=== PATIENT | male | born 1960 | race Caucasian/White ===

== ENCOUNTER → 2017-07-22 06:59 | Outpatient (CLI) | payer MEDICARE ==
[~2017-07-22] VITALS: Ht 167.6 cm; Wt 72.7 kg
--- NOTE | ~2017-07-22 | OP ---
PATIENT NAME: CINDA CHEN JR MEDICAL RECORD: [id number] :58 LOCATION:D.CAT ADMISSION DATE: SURGEON: MIKI HERNANDEZ MD DATE OF OPERATION: 07/22/2017 PROCEDURES: 1. PTCA stent LAD. 2. PTCA stent LAD diagonal. 3. Left heart catheterization. 4. Selective coronary angiography. 5. Left ventriculogram. INDICATION: Angina and coronary artery disease. PROCEDURE IN DETAIL: After informed consent was obtained and after a detailed description of risks, benefits as well as alternative therapies, the patient elected to proceed with angiogram and angioplasty. The right radial area was prepped and draped in normal sterile fashion. Right radial artery was cannulated via modified Seldinger technique with placement of 6-Bangladeshi sheath. All catheters exchanged through this sheath. FINDINGS: Left ventriculogram was performed in standard 30-degree FLORES view, reveals good cardiac wall motion throughout all segments. Overall ejection fraction 50%. SELECTIVE CORONARY ANGIOGRAPHY: 1. Left main is with no significant angiographic disease. 2. Left anterior descending has 2 diagonals. Each are previously placed stents, each are 90% to 95% in-stent restenosed. The LAD itself has 80% stenosis between the diagonals. 3. Left circumflex has moderate irregularities, but no flow-limiting stenosis. 4. Right coronary artery has moderate irregularities, but no flow-limiting stenosis. PTCA STENT OF THE LAD AND LAD DIAGONAL: The first diagonal was addressed with a 2.5 x 15, the second diagonal was addressed with a 2.5 x 12 and the LAD was addressed with a 3.5 x 12 all Chris stents. Result was 0% residual stenosis. OVERALL IMPRESSION: Successful PTCA stent of the LAD and diagonals going from 80% to 95% initial stenosis to 0% residual. TRANSINT:[id number] Voice Confirmation ID: [id number] DOCUMENT ID: [id number] MIKI HERNANDEZ MD at 1711 CC: [id number] DICTATION DATE: 07/22/17 0942 CLINICAL TRANSFORMATION SPECIALIST: 07/22/17 1055 DEP CLI 07/22/17 [place] [address]
--- NOTE | ~2017-07-22 | HEMODYNAMI ---
PATIENT:CINDA CHEN JR MEDICAL RECORD: [id number] : 58 LOCATION:[facility] ADMISSION DATE: 07/22/17 Generatedon:07/22/20179:42 Patient name: CINDA CHEN Patient #: [id number] SSN: : 1960 Date of study: 07/22/2017 Page: Of Hemodynamic Procedure Report Patient Data Patient Demographics Procedure consent was obtained First Name: CINDA Gender: Male Last Name: APRIL Suffix: Jr Nance Initial: JOSUÉ : 1960 Patient #: [id number] Age: 56 year(s) Race: Additional ID: [id number] Contact details Address: [address] [place] [address] [place] State: [place] City: [place] Zip code: [address] Past Medical History Allergies Allergen Reaction Date Comments Reported Morphine 06/04/2015 Other allergy 07/22/2017 Morphine Admission Admission Data Admission Date: 07/22/2017 Admission Time: 6:59 Admit Source: Other Lab Results Lab Result Date: 07/22/2017 Lab Result Time: 7:57 Biochemistry Name Units Result Min Max BUN mg/dl 26 --(----)-* 7 18 Creatinine mg/dl 1.2 --(---*)-- 0.6 1.3 CBC Name Units Result Min Max Hematocrit % 45.5 --(-*--)-- 42 54 Hemoglobin g/dl 16.2 --(--*-)-- 13.5 17.5 Procedure Procedure Types Cath Procedure Diagnostic Procedure LHC LH w/Coronaries Sedation Charges Moderate Sedation up to 15 minutes PCI Procedure Coronary Stent Coronary Stent Initial Coronary Stent Additional x2 Procedure Description Procedure Date Procedure Date: 07/22/2017 Procedure Start Time: 9:08 Procedure End Time: 9:36 Procedure Staff Name Function Abrahan Gomez MD Performing Physician Karl Thibodeaux RT Monitor Mann Riley RT Scrub Brady Cruz RN Nurse Procedure Data Cath Procedure Fluoroscopy Diagnostic fluoroscopy Total fluoroscopy Time: 8.9 time: 8.9 min min Diagnostic fluoroscopy Total fluoroscopy dose: 553 dose: 553 mGy mGy Contrast Material Contrast Material Type Amount (ml) Isovue 370 126 Entry Location Entry Primary Successful Side Size Upsize Upsize Entry Closure Madrigal ccessful Closure Location (Fr) 1 (Fr) 2 (Fr) Remarks Device Remarks Radial Right 6 Fr Mechanical artery Short Compression Estimated blood loss: 10 ml Diagnostic catheters Device Type Used For End Catheter Placement DIAGNOSTIC [place] 110cm 5 Procedure Fr catheter ([id number]) Procedure Complications No complications Procedure Medications Medication Administration Route Dosage Oxygen etCO2 Nasal cannula 2 l/min Heparin Flush Bag added to field 2 bags (1000units/500ml NS) 0.9% NaCl I.V. 100 ml/hr Radial Cocktail added to field 1 syringe (Verapomil 2mg/Nitro 400mcg/Heparin 1500units) Fentanyl I.V. 50 mcg Versed I.V. 1 mg Fentanyl I.V. 50 mcg Versed I.V. 1 mg Radial Cocktail I.A. 1 syringe (Verapomil 2mg/Nitro 400mcg/Heparin 1500units) Heparin Bolus I.V. 5000 units Hemodynamics Rest HGB: 16.2 (g/dl) Heart Rate: 144 (bpm) Snapshots Pre Cath Intra NCS Post Cath Vital Signs Time Heart Resp SPO2 etCO2 NIBP Rhythm Pain Sedation Rate (ipm) (%) (mmHg) (mmHg) Status Level (bpm) 8:43:47 57 16 98 0 117/79(97) NSR 0 (11) 10(A) , No pain 8:47:45 63 17 98 0 122/76(95) NSR 0 (11) 10(A) , No pain 8:51:40 67 17 96 0 114/74(96) NSR 0 (11) 10(A) , No pain 8:55:42 64 17 96 29.9 102/63(87) NSR 0 (11) 10(A) , No pain 8:59:37 64 17 96 30.7 104/67(81) NSR 0 (11) 10(A) , No pain 9:03:37 63 17 96 30.7 99/59(85) NSR 0 (11) 10(A) , No pain 9:07:33 61 16 96 30.7 101/63(84) NSR 0 (11) 10(A) , No pain 9:11:32 69 16 95 31.4 95/56(73) NSR 0 (11) 9(A) , No pain 9:15:30 66 16 93 30.7 92/58(75) NSR 0 (11) 9(A) , No pain 9:20:09 64 17 94 32.9 92/49(72) NSR 0 (11) 9(A) , No pain 9:24:12 64 18 95 31.4 95/47(72) NSR 0 (11) 9(A) , No pain 9:28:51 65 18 96 31.4 97/54(77) NSR 0 (11) 9(A) , No pain 9:32:53 65 17 96 32.9 92/56(75) NSR 0 (11) 9(A) , No pain 9:38:57 63 10 98 31.4 Time NSR 0 (11) 9(A) Exceeded , No pain Medications Time Medication Route Dose Verified Delivered Reason Note s Effectiveness by by 8:44:06 Oxygen etCO2 2 l/min Abrahan Abreu Per physician Nasal Jason Cruz RN cannula 8:44:15 Heparin Flush added 2 bags Abrahan Abreu used for Bag to Jason Cruz RN procedure (1000units/500ml field NS) 8:44:27 0.9% NaCl I.V. 100 Abrahan Abreu Per physician ml/hr Jason Cruz RN 8:44:34 Radial Cocktail added 1 Abrahan Abreu used for (Verapomil to syringe Jason Cruz RN procedure 2mg/Nitro field 400mcg/Heparin 1500units) 9:06:37 Fentanyl I.V. 50 mcg Abrahan Abreu for sedation Jason Cruz RN 9:06:46 Versed I.V. 1 mg Abrahan Abreu for sedation Jason Cruz RN 9:09:42 Fentanyl I.V. 50 mcg Abrahan Abreu for sedation Jason Cruz RN 9:09:47 Versed I.V. 1 mg Abrahan Abreu for sedation Jason Cruz RN 9:09:57 Radial Cocktail I.A. 1 Abrahan Gauthier for (Verapomil syringe Jason Gomez MD vasodilation 2mg/Nitro 400mcg/Heparin 1500units) 9:14:58 Heparin Bolus I.V. 5000 Abrahan Abreu for units Jason Cruz RN anticoagulation Procedure Log Time Note 8:23:40 Brady Cruz RN sent for patient. Start room use. 8:33:18 Informed consent obtained and on chart 8:33:21 Admit Source: Other 8:33:36 Diagnostic Cath status Elective 8:33:41 Time tracking: Regular hours (M-F 7:00 - 5:00) 8:33:45 Plan of Care:Hemodynamics will remain stable., Cardiac rhythm will remain stable., Comfort level will be maintained., Respiratory function will remain adequate., Patient/ family verbilizes understanding of procedure., Procedure tolerated without complication., Recovers from procedure without complications.. 8:35:14 H&P Date Dictated: 07/19/2017 Within 30 days and on chart., H&P Addendum completed by physician on day of procedure. (MUST COMPLETE FOR ALL OUTPATIENTS). 8:36:04 Lab Result : BUN 26 mg/dl 8:36:04 Lab Result : Creatinine 1.2 mg/dl 8:36:04 Lab Result : Hematocrit 45.5 % 8:36:04 Lab Result : Hemoglobin 16.2 g/dl 8:36:15 Lab results completed and on chart. 8:36:23 Patient received from Pre/Post Procedure Room to CCL 3 Alert and oriented. Tansferred to table in Supine position. 8:36:24 Warm blankets applied, and ervin hugger turned on for patient comfort. 8:36:24 Correct patient and procedure confirmed by team. 8:36:25 ECG and BP/O2 sat monitors applied to patient. 8:36:27 Pre-procedure instructions explained to patient. 8:36:27 Pre-op teaching completed and patient verbalized understanding. 8:36:29 Family in waiting room. 8:36:30 Patient NPO since Midnight. 8:42:57 Vital chart was started 8:44:06 Oxygen 2 l/min etCO2 Nasal cannula was administered by Brady Cruz RN; Per physician; 8:44:15 Heparin Flush Bag (1000units/500ml NS) 2 bags added to field was administered by Brady Cruz RN; used for procedure; 8:44:27 0.9% NaCl 100 ml/hr I.V. was administered by Brady Cruz RN; Per physician; 8:44:34 Radial Cocktail (Verapomil 2mg/Nitro 400mcg/Heparin 1500units) 1 syringe added to field was administered by Brady Cruz RN; used for procedure; 8:46:35 Baseline sample Acquired. 8:46:40 Rhythm: sinus rhythm 8:46:41 Full Disclosure recording started 8:47:20 Patient allergic to Other allergyMorphine 8:47:26 Is the patient allergic to Iodine/contrast media? No. 8:47:27 Is patient on blood thinner?Yes 8:47:29 ACC The patient was administered the following blood thiners within the last 24 hours: ACCPlavix 8:47:31 Patient diabetic? No. 8:47:34 Previous problem with sedation/anesthesia? No ? 8:47:35 Snore? Yes 8:47:36 Sleep apnea? No 8:47:39 Deviated septum? No 8:47:41 Opens mouth fully? Yes 8:47:42 Sticks out tongue? Yes 8:47:45 Airway obstruction? No ? 8:47:50 Dentures? Yes in tight 8:47:52 Modified Juan's test Ulnar < 7 seconds 8:47:55 Patient pain scale 0/10 ?. 8:48:01 IV patent on arrival in left forearm with 0.9% NaCl at [facility]. 8:48:05 Right Radial & Right Groin area was prepped with chlora-prep and draped in sterile fashion 8:48:05 Alarms reviewed by R. N. 8:48:06 Sharps counted by scrub and verified by R.N. 8:48:08 Use device set Radial Dx or PCI 8:48:09 ACIST Syringe (38376) opened to sterile field. 8:48:10 Medline Cath Pack ([id number]) opened to sterile field. 8:48:10 Bag Decanter () opened to sterile field. 8:48:11 ACIST Hand Control (13678) opened to sterile field. 8:48:11 ACIST Manifold (63307) opened to sterile field. 8:48:12 Tegaderm 4 x 4 (1626W) opened to sterile field. 8:48:12 MBrace Wrist Support ([id number]) opened to sterile field. 8:48:14 SHEATH 6Fr Prelude Radial ([id number]) opened to sterile field. 8:48:17 DIAGNOSTIC WIRE .035 260cm J wire (320907) opened to sterile field. 8:52:15 Physician paged 9:00:48 Zero performed for pressure channel P1 9:06:18 Physician arrived 9:06:19 --------ALL STOP TIME OUT------ 9:06:19 Final Timeout: patient, procedure, and site verified with staff and physician. All members of the team are in agreement. 9:06:21 Right Radial & Right Groin site verified by team. 9:06:23 Physical assessment completed. ASA score P 2 - A patient with mild systemic disease as per Abrahan Gomez MD. 9:06:25 Sedation plan: IV Moderate Sedation Medication:Versed, Fentanyl 9:06:37 Fentanyl 50 mcg I.V. was administered by Brady Cruz RN; for sedation; 9:06:46 Versed 1 mg I.V. was administered by Brady Cruz RN; for sedation; 9:08:30 Procedure started. 9:08:34 Local anesthetic to right radial artery with Lidocaine 2% by Abrahan Gomez MD.INITIAL ACCESS ONLY 9:09:03 A 6 Fr Short sheath was inserted into the Right Radial artery 9:09:12 A DIAGNOSTIC [place] 110cm 5 Fr catheter ([id number]) was advanced over the wire and used for Procedure. 9:09:42 Fentanyl 50 mcg I.V. was administered by Brady Cruz RN; for sedation; 9:09:47 Versed 1 mg I.V. was administered by Brady Cruz RN; for sedation; 9:09:57 Radial Cocktail (Verapomil 2mg/Nitro 400mcg/Heparin 1500units) 1 syringe I.A. was administered by Abrahan Gomez MD; for vasodilation; 9:10:24 LV gram done using FLORES 9:10:41 Injector settings: Ml/sec: 7, Volume: 15, 9:10:59 EF : 55 % 9:11:03 LCA angiography performed. 9:12:57 RCA angiography performed. 9:13:33 GUIDE 6FR XBLAD 3.5 catheter ([id number]) opened to sterile field. 9:13:34 CHOICE PT Extra Support 182cm wire ([id number]) opened to sterile field. 9:13:34 INFLATOR Merit BasixCompak (HJ5245) opened to sterile field. 9:13:39 Catheter removed. 9:14:58 Heparin Bolus 5000 units I.V. was administered by Brady Cruz RN; for anticoagulation; 9:15:01 6 Fr xblad 3.5 guide catheter was inserted over the wire 9:15:17 choice pt wire advanced. 9:18:11 Wire advanced across lesion. 9:20:10 Inflate balloon Inflation number: 1 A EUPHORA 2.5 x 15 Balloon ([id number]) was prepped and advanced across the 2nd Diag, then inflated to 11 REINIER for 0:10 (min:sec). 9:20:20 Balloon removed over the wire. 9:23:24 Place stent Inflation Number: 2 A RAJ RX 2.5 x 12 stent ([id number]) was prepped and advanced across the 2nd Diag. The stent was deployed at 13 REINIER for 0:10 (min:sec). 9:23:43 Stent catheter was removed intact over wire. 9:24:00 Wire redirected to 1st diag. 9:24:42 Wire advanced across lesion. 9:26:06 Inflation number: 1 The EUPHORA 2.5 x 15 Balloon ([id number]) was reinflated across the 1st Diag, to 13 REINIER for 0:10 (min:sec). 9:26:24 Inflation number: 2 The EUPHORA 2.5 x 15 Balloon ([id number]) was reinflated across the 1st Diag, to 17 REINIER for 0:10 (min:sec). 9:26:28 Balloon removed over the wire. 9:29:31 Place stent Inflation Number: 4 A RAJ RX 2.5 x 15 stent ([id number]) was prepped and advanced across the 1st Diag. The stent was deployed at 13 REINIER for 0:10 (min:sec). 9:29:38 Wire redirected to LAD. 9:29:48 Wire advanced across lesion. 9:30:29 Inflation number: 1 The stent balloon was then re-inflated across the Prox LAD to 21 REINIER for 0:10 (min:sec). 9:31:30 Stent catheter was removed intact over wire. 9:32:06 Place stent Inflation Number: 2 A RAJ RX 3.5 x 12 stent ([id number]) was prepped and advanced across the Prox LAD. The stent was deployed at 15 REINIER for 0:10 (min:sec). 9:32:56 Stent catheter was removed intact over wire. 9:32:57 Wire removed. 9:32:57 Guide catheter removed. 9:33:02 TR BAND Standard ([id number]) opened to sterile field. 9:33:07 Sheath removed intact; hemostasis achieved with Mechanical Compression to the Right Radial artery. 9:33:09 Procedure ended.(Physican Out) 9:34:01 Fluoroscopy time 08.90 minutes. 9:34:08 Flurop Dose total: 553 9:34:08 Fluoroscopy dose: 553 mGy 9:34:15 Contrast amount:Isovue 370 126ml. 9:34:16 Sharps counted by scrub and verified by R.N. 9:34:19 TR band inflated with 12cc of air. 9:34:20 Insertion/operative site no bleeding no hematoma. 9:34:22 Post Procedure Pulses reassessed and unchanged 9:34:24 Post-procedure physical assessment completed. ASA score P 2 - A patient with mild systemic disease as per Abrahan Gomez MD. 9:34:42 Post procedure rhythm: unchanged. 9:34:44 Estimated blood loss: 10 ml 9:34:46 Post procedure instruction explained to patient.Patient verbalizes understanding. 9:34:46 Patient needs reinforcement of post procedure teaching. 9:35:10 Procedure type changed to Cath procedure, Diagnostic procedure, LHC, [facility] w/Coronaries, Sedation Charges, Moderate Sedation up to 15 minutes, PCI procedure, Coronary Stent, Coronary Stent Initial, Coronary Stent Additional x2 9:36:09 Procedure and supply charges have been captured, reviewed, submitted and are correct. 9:36:40 Procedure Complication : No complications 9:36:42 Vital chart was stopped 9:36:42 See physician's report for complete and final results. 9:36:44 Report given to Pre/Post Procedure Room. 9:36:46 Patient transfered to Pre/Post Procedure Room with Stretcher. 9:36:48 Procedure ended. 9:36:48 Full Disclosure recording stopped 9:36:53 End room use (Document Last) Intervention Summary Intervention Notes Time ActionType Lesion and Equipment Used Action# Pressure Duration Attributes 9:20:10 Inflate 2nd Diag EUPHORA 2.5 x 1 11 00:10 balloon 15 Balloon ([id number]) 9:23:24 Place stent 2nd Diag RAJ RX 2.5 x 2 13 00:10 12 stent ([id number]) 9:26:06 Reinflate 1st Diag EUPHORA 2.5 x 1 13 00:10 balloon 15 Balloon ([id number]) 9:26:24 Reinflate 1st Diag EUPHORA 2.5 x 2 17 00:10 balloon 15 Balloon ([id number]) 9:29:31 Place stent 1st Diag RAJ RX 2.5 x 4 13 00:10 15 stent ([id number]) 9:30:29 Reinflate Prox LAD RAJ RX 2.5 x 1 21 00:10 stent 15 stent balloon ([id number]) 9:32:06 Place stent Prox LAD RAJ RX 3.5 x 2 15 00:10 12 stent ([id number]) Device Usage Item Name Manufacture Quantity Catalog Number Hospital Part Current Minimal Lot# / Charge Number Stock Stock Serial# Code ACIST Syringe Acist 1 42074 699528 529260 234545 20 (75433) Medical Systems Inc Medline Cath Cardinal 1 [id number] 701487 05120 566687 5 [facility] ([id number]) Bag Decanter Microtek 1 2001S 176612 24562 228261 5 (2001S) Medical Inc. ACIST Hand Acist 1 02620 374088 989481 057347 5 Control (52258) Medical [employer] Inc ACIST Manifold Acist 1 50355 492454 705771 499905 5 (95370) Medical Systems Inc Tegaderm 4 x 4 3M 1 1626W 306070 706477 621653 5 (1626W) MBrace Wrist Advanced 1 140-0250-00 440846 32500 097184 5 Support Vascular ([id number]) Dynamics SHEATH 6Fr Merit 1 [id number] 755887 429421 784236 5 Prelude Radial Medical ([id number]) DIAGNOSTIC WIRE St Haseeb 1 466100 828883 661626 244691 30 .035 260cm J wire (324888) DIAGNOSTIC Terumo 1 40-5013 139568 113993 806487 5 [place] 110cm 5 Fr catheter (973891) GUIDE 6FR XBLAD Cardinal 1 [id number] 637580 930039 320805 10 3.5 catheter Health (31192602) CHOICE PT Extra [place] 1 [id number] 040703 510552 461135 5 Support 182cm Scientific wire ([id number]) INFLATOR Merit Merit 1 YM7434 068809 961730 985118 15 BasSPOC Medical Medical (KT6410) EUPHORA 2.5 x Medtronic 1 [id number] 128208 290798 843025 5 [id number] 15 Balloon ([id number]) RAJ RX 2.5 x Medtronic 1 [id number] 130671 5773382 517556 5 [id number] 12 stent ([id number]) RAJ RX 2.5 x Medtronic 1 [id number] 786177 4184480 213146 5 [id number] 15 stent ([id number]) RAJ RX 3.5 x Medtronic 1 [id number] 770463 3167872 983297 5 [id number] 12 stent ([id number]) TR BAND Terumo 1 [id number] 408418 103318 686047 40 Standard ([id number]) Signature Audit [place] Stage Time Signature Unsigned Intra-Procedure 07/22/2017 Karl Thibodeaux 9:42:12 AM RT(R) Signatures Monitor : Karl Thibodeaux RT Signature : Date : Time : [facility] [address], [place] [address]
[~2017-07-22 06:59] MED LIST: ASPIRIN325 MG PO; EFFEXOR XR150 MG PO; EFFEXOR75 MG PO; LOMOTIL TABLET1 TAB PO; NITROQUICK0.4 MG SL; PLAVIX75 MG PO; PRAVACHOL20 MG; PRAVACHOL20 MG PO; TENORMIN25 MG PO; TENORMIN50 MG PO
[2017-07-22 08:11] VITALS: BP 110/67; Ht 167.6 cm; Wt 72.7 kg
[2017-07-22 08:11] LABS: ANION GAP 15.5 mmol/L (8-16); CARBON DIOXIDE 23.7 mmol/L (21.0-32.0); CREATININE - SERUM 1.2 mg/dL (0.6-1.3); POTASSIUM - SERUM 4.2 mmol/L (3.5-5.1)
[2017-07-22 08:17] LABS: BASOPHILS 0.5 % (0-2); EOSINOPHILS 2.3 % (0-7); HEMATOCRIT 45.5 % (42.0-54.0); HEMOGLOBIN 16.2 g/dL (13.5-17.5); IMMATURE GRANULOCYTES 0.3 % (0-5); LYMPHOCYTES 22.4 % (15-50); MCH 29.2 pg (26.0-34.0); MCHC 35.6 g/dL (31.0-37.0); MCV 82.1 fL (80.0-100.0); MEAN PLATELET VOLUME 9.8 fL (7.4-10.4); NEUTROPHILS 63.5 % (40-80); PLATELET COUNT 124 10x3/uL (130-400); RBC 5.54 10x6/uL (4.20-6.10); RDW 13.7 % (11.5-14.5); WBC 6.4 10x3/uL (4.8-10.8)
== END | disposition home or self-care (01) ==
LOC: D.CATH 06:59
PROVIDERS: Internal Medicine Interventional Cardiology
DX: I25.119 Atherosclerotic heart disease of native coronary artery with unspecified angina pectoris (principal); T82.855A Stenosis of coronary artery stent, initial encounter; Z01.812 Encounter for preprocedural laboratory examination
CPT/HCPCS: 93458; C9600; C9601

== ENCOUNTER 2018-02-24 06:46 | Outpatient (CLI) | payer MEDICARE ==
[~2018-02-24] VITALS: Ht 167.6 cm; Wt 77.3 kg
--- NOTE | ~2018-02-24 | HEMODYNAMI ---
PATIENT:CINDA CHEN JR MEDICAL RECORD: [id number] : 58 LOCATION:[facility] ADMISSION DATE: 02/24/18 Generatedon:02/24/20189:36 Patient name: CINDA CHEN Patient #: [id number] SSN: : 1960 Date of study: 02/24/2018 Page: Of Hemodynamic Procedure Report Patient Data Patient Demographics Procedure consent was obtained First Name: CINDA Gender: Male Last Name: APRIL Suffix: Jr Nance Initial: JOSUÉ : 1960 Patient #: [id number] Age: 57 year(s) Race: Additional ID: [id number] Contact details Address: [address] [place] [address] [place] State: [place] City: [place] Zip code: [address] Past Medical History Allergies Allergen Reaction Date Comments Reported Morphine 06/04/2015 Other allergy 07/22/2017 Morphine Morphine 02/24/2018 Admission Admission Data Admission Date: 02/24/2018 Admission Time: 6:46 Procedure Procedure Types Cath Procedure Diagnostic Procedure [facility] w/Coronaries Sedation Charges Moderate Sedation up to 30 minutes PCI Procedure Coronary Stent Coronary Stent Initial Procedure Description Procedure Date Procedure Date: 02/24/2018 Procedure Start Time: 9:16 Procedure End Time: 9:36 Procedure Staff Name Function Abrahan Gomez MD Performing Physician Betty Jay RT Monitor Brady Cruz RN Nurse Mann Riley RT Scrub Procedure Data Cath Procedure Fluoroscopy Diagnostic fluoroscopy Total fluoroscopy Time: 7.5 time: 7.5 min min Diagnostic fluoroscopy Total fluoroscopy dose: 368 dose: 368 mGy mGy Contrast Material Contrast Material Type Amount (ml) Isovue 300 81 Entry Location Entry Primary Successful Side Size Upsize Upsize Entry Closure Madrigal ccessful Closure Location (Fr) 1 (Fr) 2 (Fr) Remarks Device Remarks Radial Right 6 Fr Mechanical artery Short Compression Estimated blood loss: 10 ml Diagnostic catheters Device Type Used For End Catheter Placement DIAGNOSTIC [place] 110cm 5 Left Coronary Fr catheter ([id number]) Angiography DIAGNOSTIC [place] 110cm 5 Left Coronary Fr catheter ([id number]) Angiography DIAGNOSTIC [place] 110cm 5 Right Coronary Fr catheter ([id number]) Angiography DIAGNOSTIC AR2 MOD 5 Fr Right Coronary catheter ([id number]) Angiography Procedure Complications No complications Procedure Medications Medication Administration Route Dosage Oxygen etCO2 Nasal cannula 2 l/min Heparin Flush Bag added to field 2 bags (1000units/500ml NS) 0.9% NaCl I.V. 100 ml/hr Radial Cocktail added to field 1 syringe (Verapomil 2mg/Nitro 400mcg/Heparin 1500units) Lidocaine 2% added to field 20 Fentanyl I.V. 50 mcg Versed I.V. 1 mg Fentanyl I.V. 50 mcg Versed I.V. 1 mg Fentanyl I.V. 50 mcg Heparin Bolus I.V. 4000 units Radial Cocktail I.A. 1 syringe (Verapomil 2mg/Nitro 400mcg/Heparin 1500units) Hemodynamics Rest Heart Rate: 89 (bpm) Snapshots Pre Cath Intra NCS Post Cath Vital Signs Time Heart Resp SPO2 etCO2 NIBP Rhythm Pain Sedation Rate (ipm) (%) (mmHg) (mmHg) Status Level (bpm) 8:40:04 75 16 98 24.7 103/73(89) NSR 0 (11) 10(A) , No pain 8:44:20 84 19 73 12.7 108/71(89) NSR 0 (11) 10(A) , No pain 8:48:39 76 17 96 30.8 98/71(82) NSR 0 (11) 10(A) , No pain 8:52:54 75 17 97 33 91/61(81) NSR 0 (11) 10(A) , No pain 8:57:09 76 17 92 35.3 92/60(71) NSR 0 (11) 10(A) , No pain 9:01:22 74 16 91 33.8 89/57(70) NSR 0 (11) 10(A) , No pain 9:05:35 72 16 92 33 90/59(72) NSR 0 (11) 10(A) , No pain 9:09:47 76 17 91 33 89/58(71) NSR 0 (11) 10(A) , No pain 9:13:58 71 16 93 34.5 94/58(82) NSR 0 (11) 10(A) , No pain 9:18:10 88 16 97 29.3 97/61(83) NSR 0 (11) 9(A) , No pain 9:22:22 78 17 93 33 92/66(81) NSR 0 (11) 9(A) , No pain 9:26:32 74 17 95 33 105/67(80) NSR 0 (11) 9(A) , No pain 9:30:48 76 17 95 33 101/64(83) NSR 0 (11) 9(A) , No pain 9:35:00 77 16 96 28.5 102/70(88) NSR 0 (11) 9(A) , No pain Medications Time Medication Route Dose Verified Delivered Reason Note s Effectiveness by by 8:41:22 Oxygen etCO2 2 l/min Abrahan Abreu Per physician Nasal Jason Cruz RN cannula 8:41:30 Heparin Flush added 2 bags Abrahan Abreu used for Bag to Jason Cruz RN procedure (1000units/500ml field NS) 8:41:39 0.9% NaCl I.V. 100 Abrahan Abreu Per physician ml/hr Jason Cruz RN 8:41:46 Radial Cocktail added 1 Abrahan Abreu used for (Verapomil to syringe Jason Cruz RN procedure 2mg/Nitro field 400mcg/Heparin 1500units) 8:41:56 Lidocaine 2% added 20ml Abrahan Del Rioy used for to vial Jason Cruz automatic spinning lathe setter field 9:00:22 Fentanyl I.V. 50 mcg Abrahan Abreu for sedation Jason Cruz RN 9:00:29 Versed I.V. 1 mg Abrahan Abreu for sedation Jason Cruz RN 9:13:41 Fentanyl I.V. 50 mcg Abrahan Abreu for sedation Jason Cruz RN 9:13:46 Versed I.V. 1 mg Abrahan Abreu for sedation Jason Cruz RN 9:16:48 Radial Cocktail I.A. 1 Abrahan Gauthier for (Verapomil syringe Jason deutsch 2mg/Nitro 400mcg/Heparin 1500units) 9:18:02 Fentanyl I.V. 50 mcg Abrahan Abreu for sedation Jason Cruz RN 9:22:40 Heparin Bolus I.V. 4000 Abrahan Abreu for units Jason Cruz RN anticoagulation Procedure Log Time Note 8:20:45 Brady Cruz RN sent for patient. Start room use. 8:29:54 Time tracking: Regular hours (M-F 7:00 - 5:00) 8:29:59 Plan of Care:Hemodynamics will remain stable., Cardiac rhythm will remain stable., Comfort level will be maintained., Respiratory function will remain adequate., Patient/ family verbilizes understanding of procedure., Procedure tolerated without complication., Recovers from procedure without complications.. 8:33:23 Patient received from Pre/Post Procedure Room to [facility]3] 3 Alert and oriented. Tansferred to table in Supine position. 8:33:24 Warm blankets applied, and ervin hugger turned on for patient comfort. 8:33:25 Correct patient and procedure confirmed by team. 8:33:26 Signed procedure consent form obtained from patient. 8:33:27 ECG and BP/O2 sat monitors applied to patient. 8:33:28 Full Disclosure recording started 8:38:49 Vital chart was started 8:41:22 Oxygen 2 l/min etCO2 Nasal cannula was administered by Brady Cruz RN; Per physician; 8:41:30 Heparin Flush Bag (1000units/500ml NS) 2 bags added to field was administered by Brady Cruz RN; used for procedure; 8:41:39 0.9% NaCl 100 ml/hr I.V. was administered by Brady Cruz RN; Per physician; 8:41:46 Radial Cocktail (Verapomil 2mg/Nitro 400mcg/Heparin 1500units) 1 syringe added to field was administered by Brady Cruz RN; used for procedure; 8:41:56 Lidocaine 2% 20ml vial added to field was administered by Brady Cruz RN; used for procedure; 8:44:47 Baseline sample Acquired. 8:44:50 Rhythm: sinus rhythm 8:44:57 H&P Date Dictated: 02/23/2018 Within 30 days and on chart., H&P Addendum completed by physician on day of procedure. (MUST COMPLETE FOR ALL OUTPATIENTS). 8:44:58 Pre-procedure instructions explained to patient. 8:44:58 Pre-op teaching completed and patient verbalized understanding. 8:45:00 Family in patients room. 8:45:01 Patient NPO since Midnight. 8:45:17 Patient allergic to Morphine 8:45:24 Is the patient allergic to Iodine/contrast media? No. 8:45:26 Is patient on blood thinner?Yes 8:45:28 ACC The patient was administered the following blood thiners within the last 24 hours: ACCPlavix 8:46:03 Patient diabetic? No. 8:46:06 Previous problem with sedation/anesthesia? No ? 8:46:06 Snore? Yes 8:46:07 Sleep apnea? No 8:46:08 Deviated septum? No 8:46:09 Opens mouth fully? Yes 8:46:15 Sticks out tongue? Yes 8:46:17 Airway obstruction? No ? 8:46:21 Dentures? Yes IN 8:46:26 Pre procedure: right dorsailis pedis pulse 2+ Normal; easily identifiable; not easily obliterated 8:46:28 Modified Juan's test Ulnar < 7 seconds 8:46:30 Patient pain scale 0/10 ?. 8:46:36 IV patent on arrival in left forearm with 0.9% NaCl at KVO. 8:46:40 Lab results completed and on chart. 8:46:43 Right Radial & Right Groin area was prepped with chlora-prep and draped in sterile fashion 8:46:44 Alarms reviewed by R. N. 8:46:44 Sharps counted by scrub and verified by R.N. 8:47:04 Use device set Radial Dx or PCI 8:47:05 ACIST Syringe (52392) opened to sterile field. 8:47:06 Medline Cath Pack ([id number]) opened to sterile field. 8:47:06 Bag Decanter (2002) opened to sterile field. 8:47:06 DIAGNOSTIC WIRE .035 260cm J wire (136382) opened to sterile field. 8:47:07 ACIST Hand Control (02856) opened to sterile field. 8:47:07 ACIST Manifold (20285) opened to sterile field. 8:47:08 Tegaderm 4 x 4 (1626W) opened to sterile field. 8:47:08 MBrace Wrist Support ([id number]) opened to sterile field. 8:47:09 SHEATH 6FR Slender (801060) opened to sterile field. 8:56:21 Zero performed for pressure channel P1 8:56:30 Zero performed for pressure channel P1 8:59:51 Final Timeout: patient, procedure, and site verified with staff and physician. All members of the team are in agreement. 8:59:56 Right Radial site verified by team. 8:59:59 Physical assessment completed. ASA score P 2 - A patient with mild systemic disease as per Abrahan Gomez MD. 9:00:03 Sedation plan: IV Moderate Sedation Medication:Versed, Fentanyl 9:00:22 Fentanyl 50 mcg I.V. was administered by Brady Cruz RN; for sedation; 9:00:29 Versed 1 mg I.V. was administered by Brady Cruz RN; for sedation; 9:13:41 Fentanyl 50 mcg I.V. was administered by Brady Cruz RN; for sedation; 9:13:46 Versed 1 mg I.V. was administered by Brady Cruz RN; for sedation; 9:15:44 Procedure started. 9:16:11 Local anesthetic to right radial artery with Lidocaine 2% by Abrahan Gomez MD.INITIAL ACCESS ONLY 9:16:43 A 6 Fr Short sheath was inserted into the Right Radial artery 9:16:48 Radial Cocktail (Verapomil 2mg/Nitro 400mcg/Heparin 1500units) 1 syringe I.A. was administered by Abrahan Gomez MD; for vasodilation; 9:17:16 A DIAGNOSTIC [place] 110cm 5 Fr catheter ([id number]) was advanced over the wire and used for Left Coronary Angiography. 9:17:52 LV gram done using FLORES 9:17:56 Injector settings: Ml/sec: 5, Volume: 15, 9:18:02 Fentanyl 50 mcg I.V. was administered by Brady Cruz RN; for sedation; 9:18:22 EF : 65 % 9:18:38 A DIAGNOSTIC [place] 110cm 5 Fr catheter (801597) was advanced over the wire and used for Left Coronary Angiography. 9:18:43 Use device set [facility] PCI 9:18:49 INFLATOR Merit BasixCompak (YX8756) opened to sterile field. 9:18:51 CHOICE PT Extra Support 182cm wire ([id number]) opened to sterile field. 9:20:18 A DIAGNOSTIC [place] 110cm 5 Fr catheter (350557) was advanced over the wire and used for Right Coronary Angiography. 9:20:21 Catheter removed. 9:20:34 A DIAGNOSTIC AR2 MOD 5 Fr catheter (468169I) was advanced over the wire and used for Right Coronary Angiography. 9:21:33 Catheter removed. 9:21:48 GUIDE 6FR XBLAD 3.5 catheter ([id number]) opened to sterile field. 9:22:04 6 Fr XBLAD 3.5 guide catheter was inserted over the wire 9:22:40 Heparin Bolus 4000 units I.V. was administered by Brady Cruz RN; for anticoagulation; 9:23:15 CHOICE PT ES wire advanced. 9:25:37 Inflate balloon Inflation number: 1 A EUPHORA 3.0 x 20 Balloon ([id number]) was prepped and advanced across the Mid LAD, then inflated to 17 REINIER for 0:05 (min:sec). 9:25:54 Inflation number: 2 The EUPHORA 3.0 x 20 Balloon ([id number]) was reinflated across the Mid LAD, to 17 REINIER for 0:10 (min:sec). 9:27:10 Inflation number: 3 The EUPHORA 3.0 x 20 Balloon ([id number]) was reinflated across the Mid LAD, to 17 REINIER for 0:03 (min:sec). 9:27:36 Balloon removed over the wire. 9:27:43 GUIDE 6FR HS II catheter ([id number]) opened to sterile field. 9:28:36 Place stent Inflation Number: 4 A INTEGRITY RX 3.5 x 30 stent ([id number]) was prepped and advanced across the Mid LAD. The stent was deployed at 17 REINIER for 0:08 (min:sec). 9:32:55 ATTEMPT TO WIRE DIAG1 UNSUCCESSFUL 9:33:07 Stent catheter was removed intact over wire. 9:33:07 Wire removed. 9:33:07 Guide catheter removed. 9:33:18 Sheath removed intact; hemostasis achieved with Mechanical Compression to the Right Radial artery. 9:33:19 Procedure ended.(Physican Out) 9:33:30 Fluoroscopy time 07.50 minutes. 9:33:35 Fluoroscopy dose: 368 mGy 9:33:35 Flurop Dose total: 368 9:33:38 Contrast amount:Isovue 300 81ml. 9:33:39 Sharps counted by scrub and verified by R.N. 9:33:43 TR band inflated with 12cc of air. 9:33:44 Insertion/operative site no bleeding no hematoma. 9:33:50 Post right radial artery:stable, clean and dry 9:33:51 Post Procedure Pulses reassessed and unchanged 9:33:54 Post-procedure physical assessment completed. ASA score P 2 - A patient with mild systemic disease as per Abrahan Gomez MD. 9:33:56 Post procedure rhythm: unchanged. 9:34:00 Estimated blood loss: 10 ml 9:34:13 TR BAND Standard ([id number]) opened to sterile field. 9:34:20 Post procedure instruction explained to patient.Patient verbalizes understanding. 9:34:21 Patient needs reinforcement of post procedure teaching. 9:34:30 Procedure type changed to Cath procedure, Diagnostic procedure, LHC, LHC w/Coronaries, Sedation Charges, Moderate Sedation up to 30 minutes, PCI procedure, Coronary Stent, Coronary Stent Initial 9:34:51 See physician's report for complete and final results. 9:35:06 Procedure Complication : No complications 9:36:07 Procedure and supply charges have been captured, reviewed, submitted and are correct. 9:36:11 Vital chart was stopped 9:36:13 Report given to Pre/Post Procedure Room. 9:36:16 Patient transfered to Pre/Post Procedure Room with Stretcher. 9:36:23 Procedure ended. 9:36:23 Full Disclosure recording stopped 9:36:27 End room use (Document Last) Intervention Summary Intervention Notes Time ActionType Lesion and Equipment Action# Pressure Duration Attributes Used 9:25:37 Inflate Mid LAD EUPHORA 3.0 1 17 00:05 balloon x 20 Balloon ([id number]) 9:25:54 Reinflate Mid LAD EUPHORA 3.0 2 17 00:10 balloon x 20 Balloon ([id number]) 9:27:10 Reinflate Mid LAD EUPHORA 3.0 3 17 00:03 balloon x 20 Balloon ([id number]) 9:28:36 Place stent Mid LAD INTEGRITY RX 4 17 00:08 3.5 x 30 stent ([id number]) Device Usage Item Name Manufacture Quantity Catalog Number Hospital Part Current Mini mal Lot# / Charge Number Stock Stock Serial# Code ACIST Acist 1 58687 829808 908470 235303 20 Syringe Medical (28998) Systems Inc Medline Cath Medline 1 [id number] 187869 54594 751171 5 Pack ([id number]) Bag Decanter Microtek 1 2001S 101275 82249 413767 5 (2001S) Medical Inc. DIAGNOSTIC St Haseeb 1 149540 034053 103712 961255 30 WIRE .035 260cm J wire (330051) ACIST Hand Acist 1 29339 438515 778101 160922 5 Control Medical (06255) Systems Inc ACIST Acist 1 18668 757281 935978 424689 5 Manifold Medical (98799) Systems Inc Tegaderm 4 x 3M 1 1626W 632928 744863 577408 5 4 (1626W) MBrace Wrist Advanced 1 140-0250-00 425455 67921 441918 5 Support Vascular (996072101) Dynamics SHEATH 6FR Terumo 1 [id number] 995319 902273 334079 5 Slender (80-1060) DIAGNOSTIC Terumo 1 405013 107202 224917 372897 5 [place] 110cm 5 Fr catheter (427483) INFLATOR [facility] 1 DF1434 219103 264550 195777 15 [facility] BasixCompak (LK9101) CHOICE PT Crete 1 [id number] 499807 928727 574823 5 Extra Scientific Support 182cm wire ([id number]) DIAGNOSTIC Cardinal 1 982079W 843104 948696 051406 20 AR2 MOD 5 Fr Health catheter (261889O) GUIDE 6FR Cardinal 1 [id number] 634774 712649 905625 10 XBLAD 3.5 Health catheter (37467905) EUPHORA 3.0 Medtronic 1 [id number] 927811 593554 289143 5 [id number] x 20 Balloon (XFL6703O) GUIDE 6FR HS Medtronic 1 [id number] 848101 41669 167522 1 II catheter (JY6BHJZ) INTEGRITY RX Medtronic 1 [id number] 966656 469727 741116 5 [id number] 3.5 x 30 stent ([id number]) TR BAND Terumo 1 JDL03-TBA 961631 605406 387682 40 Standard ([id number]) Signature Audit Assaria Stage Time Signature Unsigned Intra-Procedure 02/24/2018 Betty 9:36:44 AM Counts RT(R) Signatures Monitor : Betty Signature : Counts RT Date : Time : [address] [address]
[2018-02-24] MEDS ORDERED: BAYER CHEWABLE81 MG PO (07:20)
[2018-02-24] MEDS ORDERED: ALLERGY RELIEF PO (07:21)
[2018-02-24 07:27] VITALS: BP 118/71; Ht 167.6 cm; Wt 77.3 kg
[2018-02-24 07:34] LABS: BASOPHILS 0.2 % (0-2); EOSINOPHILS 1.1 % (0-7); HEMATOCRIT 44.5 % (42.0-54.0); HEMOGLOBIN 16.1 g/dL (13.5-17.5); IMMATURE GRANULOCYTES 0.4 % (0-5); LYMPHOCYTES 12.5 % (15-50); MCH 29.4 pg (26.0-34.0); MCHC 36.2 g/dL (31.0-37.0); MCV 81.4 fL (80.0-100.0); MEAN PLATELET VOLUME 9.4 fL (7.4-10.4); MONOCYTES 10.8 % (2-11); PLATELET COUNT 113 10x3/uL (130-400); RBC 5.47 10x6/uL (4.20-6.10); RDW 13.6 % (11.5-14.5); WBC 10.7 10x3/uL (4.8-10.8)
[2018-02-24 07:41] LABS: ANION GAP 15.3 mmol/L (8-16); CREATININE - SERUM 1.1 mg/dL (0.6-1.3); POTASSIUM - SERUM 4.3 mmol/L (3.5-5.1)
--- NOTE | 2018-02-24 13:37 | OP ---
PATIENT NAME: CINDA CHEN JR MEDICAL RECORD: [id number] :58 LOCATION:D.CAT ADMISSION DATE: SURGEON: MIKI HERNANDEZ MD DATE OF OPERATION: 02/24/2018 PROCEDURES: 1. PTCA stent LAD. 2. Left heart catheterization. 3. Selective coronary angiography. 4. Left ventriculogram. INDICATION: Angina and coronary artery disease. PROCEDURE IN DETAIL: After informed consent was obtained and after a detailed description of risks, benefits as well as alternative therapies, the patient elected to proceed with angiogram and angioplasty. The right femoral area was prepped and draped in normal sterile fashion. Right femoral artery was cannulated via modified Seldinger technique with placement of 6-Tamazight sheath. All catheters exchanged through this sheath. FINDINGS: Left ventriculogram was performed in standard 30-degree FLORES view, reveals good cardiac wall motion throughout all segments. Overall ejection fraction estimated 60%. SELECTIVE CORONARY ANGIOGRAPHY: 1. Left main is with no significant angiographic disease. 2. Left anterior descending has previously placed stents, these are widely patent; however, 2 areas distal to each previously placed stent is 80% to 85% stenosed. These are relatively close to each other. 3. The left circumflex has moderate irregularities, but no flow-limiting stenosis. 4. Right coronary artery has moderate irregularities, but no flow-limiting stenosis. PTCA STENT OF THE LAD: We covered both stenoses with a 3.5 x 30 mm Integrity. Result was 0% residual stenosis. OVERALL IMPRESSION: Successful percutaneous transluminal coronary angioplasty stent of the left anterior descending going from 85% initial stenosis times 2 to 0% residual. TRANSINT:[id number] Voice Confirmation ID: [id number] DOCUMENT ID: [id number] MIKI HERNANDEZ MD at 1337 CC: [id number] DICTATION DATE: 02/24/18 0940 FACULTY DEAN: 02/24/18 1038 [facility] CLI 02/24/18 [id number] [place] [address]
== END 2018-02-24 13:15 ==
LOC: D.CATH 06:46
PROVIDERS: Internal Medicine Interventional Cardiology
DX: I25.119 Atherosclerotic heart disease of native coronary artery with unspecified angina pectoris (principal); Z01.812 Encounter for preprocedural laboratory examination

== ENCOUNTER 2018-05-01 07:16 | Outpatient (CLI) | payer MEDICARE ==
[~2018-05-01] VITALS: Ht 167.6 cm; Wt 73.5 kg
--- NOTE | ~2018-05-01 | OP ---
PATIENT NAME: CINDA CHEN JR MEDICAL RECORD: [id number] :58 LOCATION:D.CAT ADMISSION DATE: SURGEON: MIKI HERNANDEZ MD DATE OF OPERATION: 05/01/2018 PROCEDURES: 1. PTCA and stent, LAD. 2. PTCA, LAD diagonal. 3. Left heart catheterization. 4. Selective coronary angiography. 5. Left ventriculogram. INDICATION: Angina and coronary artery disease. PROCEDURE IN DETAIL: After informed consent was obtained with detailed description of risks and benefits as well as alternative therapies, the patient elected to proceed with angiogram and angioplasty. The right radial area was prepped and draped in normal sterile fashion. The right radial artery was cannulated via modified Seldinger technique with placement of 6-Belarusian sheath. All catheters were exchanged through this sheath. FINDINGS: Left ventriculogram performed in standard 30-degree FLORES view reveals good cardiac wall motion throughout all segments. Overall ejection fraction is estimated at 60%. SELECTIVE CORONARY ANGIOGRAPHY: 1. Left main is with no significant angiographic disease. 2. Left anterior descending has previously placed stents in the LAD and the diagonal. There is up to 90% in-stent restenosis of both. 3. Left circumflex has moderate irregularities, but no flow-limiting stenosis. 4. Right coronary has mild irregularities, but no flow-limiting stenosis. PTCA AND STENT OF THE LAD: The stent used was 3.5 x 28 mm Patino Mercedes. Result was 0% residual stenosis. The diagonal was addressed with a 2.5 balloon. Result was 0% residual stenosis. OVERALL IMPRESSION: Successful PTCA and stent of the LAD and diagonal, going from 90 plus percent initial stenosis to 0% residual. TRANSINT:[id number] Voice Confirmation ID: [id number] DOCUMENT ID: [id number] MIKI HERNANDEZ MD CC: [id number] DICTATION DATE: 05/01/18 1425 LIVESTOCK PRODUCER: 05/01/18 1801 REG [facility] [address] [place] [address]
--- NOTE | ~2018-05-01 | HEMODYNAMI ---
PATIENT:CINDA CHEN JR MEDICAL RECORD: [id number] : 58 LOCATION:D.CAT ADMISSION DATE: 05/01/18 Generatedon:05/01/201814:28 Patient name: CINDA CHEN Patient #: [id number] SSN: : 1960 Date of study: 05/01/2018 Page: Of Hemodynamic Procedure Report Patient Data Patient Demographics Procedure consent was obtained First Name: CINDA Gender: Male Last Name: APRIL Suffix: Jr Nance Initial: JOSUÉ : 1960 Patient #: [id number] Age: 57 year(s) Race: Additional ID: [id number] Contact details [address]: [address] [place] [address] [place] State: [place] City: [place] Zip code: [address] Past Medical History Allergies Allergen Reaction Date Comments Reported Morphine 06/04/2015 Other allergy 07/22/2017 Morphine Morphine 02/24/2018 Other allergy 05/01/2018 Morphine Admission Admission Data Admission Date: 05/01/2018 Admission Time: 7:16 Lab Results Lab Result Date: 05/01/2018 Lab Result Time: 0:00 CBC Name Units Result Min Max Hemoglobin g/dl 16.2 --(--*-)-- 13.5 17.5 Procedure Procedure Types Cath Procedure Diagnostic Procedure [facility] w/Coronaries Sedation Charges Moderate Sedation up to 30 minutes PCI Procedure Coronary Stent Coronary Stent Initial PTCA PTCA Additional Procedure Description Procedure Date Procedure Date: 05/01/2018 Procedure Start Time: 14:02 Procedure End Time: 14:28 Procedure Staff Name Function Abrahan Gomez MD Performing Physician Selena Valdez RT Monitor Rosanne Do RT Scrub Alex Diaz RN Nurse Brady Cruz RN Freelance Patternmaker Procedure Data Cath Procedure Fluoroscopy Diagnostic fluoroscopy Total fluoroscopy Time: 9.7 time: 9.7 min min Diagnostic fluoroscopy Total fluoroscopy dose: dose: 1214 mGy 1214 mGy Contrast Material Contrast Material Type Amount (ml) Isovue 300 84 Entry Location Entry Primary Successful Side Size Upsize Upsize Entry Closure Madrigal ccessful Closure Location (Fr) 1 (Fr) 2 (Fr) Remarks Device Remarks Radial Right 6 Fr 6 Fr Mechanical artery Short Short Compression Estimated blood loss: 10 ml Diagnostic catheters Device Type Used For End Catheter Placement DIAGNOSTIC [place] 110cm 5 Procedure Fr catheter ([id number]) Procedure Complications No complications Procedure Medications Medication Administration Route Dosage 0.9% NaCl I.V. 100 ml/hr Oxygen etCO2 Nasal cannula 2 l/min Heparin Flush Bag added to field 2 bags (1000units/500ml NS) Lidocaine 2% added to field 20 Radial Cocktail added to field 1 syringe (Verapomil 2mg/Nitro 400mcg/Heparin 1500units) Versed I.V. 2 mg Fentanyl I.V. 100 mcg Radial Cocktail I.A. 1 syringe (Verapomil 2mg/Nitro 400mcg/Heparin 1500units) Versed I.V. 1 mg Heparin Bolus I.V. 4000 units Hemodynamics Rest HGB: 16.2 (g/dl) Heart Rate: 56 (bpm) Snapshots Pre Cath Intra NCS Post Cath Vital Signs Time Heart Resp SPO2 etCO2 NIBP Rhythm Pain Sedation Rate (ipm) (%) (mmHg) (mmHg) Status Level (bpm) 13:47:28 72 17 100 29.5 121/73(97) NSR 0 (11) 10(A) , No pain 13:51:36 67 12 98 30.3 113/70(83) NSR 0 (11) 10(A) , No pain 13:55:42 64 16 97 32.6 101/63(75) NSR 0 (11) 10(A) , No pain 13:59:43 63 17 97 32.6 101/63(76) NSR 0 (11) 10(A) , No pain 14:03:43 72 12 97 31.8 119/70(85) NSR 0 (11) 10(A) , No pain 14:07:51 74 11 95 30.3 109/63(95) NSR 0 (11) 10(A) , No pain 14:11:56 68 17 95 28 100/61(80) NSR 0 (11) 10(A) , No pain 14:16:00 68 17 96 31 96/60(74) NSR 0 (11) 10(A) , No pain 14:20:02 68 18 96 30.3 90/59(76) NSR 0 (11) 10(A) , No pain 14:24:55 70 10 97 29.5 102/66(81) NSR 0 (11) 10(A) , No pain Medications Time Medication Route Dose Verified Delivered Reason Not es Effectiveness by by 13:46:40 0.9% NaCl I.V. 100 Alex Alex Per physician ml/hr Emily Diaz RN RN 13:46:50 Oxygen etCO2 2 l/min Alex Alex for low 02 sats Nasal Lorigan mEily cannula RN RN 13:47:00 Heparin Flush added 2 bags Alex Alex used for Bag to Emily Diaz procedure (1000units/500ml RN RN NS) 13:47:11 Lidocaine 2% added 20ml Alex Alex for local to vial Lorigan Emily anesthetic field VAUGHAN RN 13:47:21 Radial Cocktail added 1 Alex Alex used for (Verapomil to syringe Emily Diaz procedure 2mg/Nitro field VAUGHAN RN 400mcg/Heparin 1500units) 14:02:34 Versed I.V. 2 mg Alex Alex for sedation Emily Diaz RN RN 14:02:41 Fentanyl I.V. 100 mcg Alex Alex for sedation Emily Diaz RN RN 14:03:59 Radial Cocktail I.A. 1 Alex Abrahan for (Verapomil syringe Ashleyigan Jason BHAT vasodilation 2mg/Nitro RN 400mcg/Heparin 1500units) 14:04:09 Versed I.V. 1 mg Alex Alex for sedation Emily Diaz RN RN 14:10:05 Heparin Bolus I.V. 4000 Alex Alex for units Lorigan Emily anticoagulation RN program paraprofessional Log Time Note 13:30:12 Brady Cruz RN sent for patient. Start room use. 13:30:13 Time tracking: Regular hours (M-F 7:00 - 5:00) 13:30:20 Plan of Care:Hemodynamics will remain stable., Cardiac rhythm will clement in stable., Comfort level will be maintained., Respiratory function will remain adequate., Patient/ family verbilizes understanding of procedure., Procedure tolerated without complication., Recovers from procedure without complications.. 13:36:26 Patient received from ED to CCL 2 Alert and oriented. Tansferred to tab le in Supine position. 13:36:27 Warm blankets applied, and ervin hugger turned on for patient comfort. 13:36:28 Correct patient and procedure confirmed by team. 13:36:33 Signed procedure consent form obtained from patient. 13:37:00 Snore? Yes 13:37:01 Sleep apnea? No 13:37:14 Family in waiting room. 13:37:16 Patient NPO since Midnight. 13:37:31 Patient allergic to Other allergyMorphine 13:37:33 Is the patient allergic to Iodine/contrast media? No. 13:37:34 Was the patient premedicated? Yes 13:37:45 Is patient on blood thinner?Yes 13:37:48 ACC The patient was administered the following blood thiners within the last 24 hours: ACCPlavix 13:37:50 Patient diabetic? No. 13:37:55 Previous problem with sedation/anesthesia? No ? 13:46:26 Vital chart was started 13:46:40 0.9% NaCl 100 ml/hr I.V. was administered by Alex Diaz RN; Per physician; 13:46:50 Oxygen 2 l/min etCO2 Nasal cannula was administered by Alex Diaz RN; for low 02 sats; 13:47:00 Heparin Flush Bag (1000units/500ml NS) 2 bags added to field was admini stered by Alex Diaz RN; used for procedure; 13:47:11 Lidocaine 2% 20ml vial added to field was administered by Alex ace RN; for local anesthetic; 13:47:21 Radial Cocktail (Verapomil 2mg/Nitro 400mcg/Heparin 1500units) 1 syring e added to field was administered by Alex Diaz RN; used for procedure; 13:48:49 ECG and BP/O2 sat monitors applied to patient. 13:48:50 Baseline sample Acquired. 13:48:53 Rhythm: sinus rhythm 13:48:56 Full Disclosure recording started 13:49:09 H&P Date Dictated: 05/01/2018 Emergent; H&P N/A. 13:49:10 Pre-procedure instructions explained to patient. 13:49:20 Pre procedure: right dorsailis pedis pulse 2+ Normal; easily identifiab le; not easily obliterated 13:49:34 IV patent on arrival in left forearm with 0.9% NaCl at [facility]. 13:49:38 Lab results completed and on chart. 13:49:41 Right Radial & Right Groin area was prepped with chlora-prep and draped in sterile fashion 13:49:42 Alarms reviewed by R. N. 13:49:43 Sharps counted by scrub and verified by R.N. 13:59:26 Lab Result : Hemoglobin 16.2 g/dl 13:59:40 Physician paged 13:59:47 Zero performed for pressure channel P1 14:00:17 SHEATH 6FR [place] ([id number]) opened to sterile field. 14:00:18 Physician arrived 14:00:20 --------ALL STOP TIME OUT------ 14:01:58 Final Timeout: patient, procedure, and site verified with staff and daljit tovar. All members of the team are in agreement. 14:02:00 Right Radial & Right Groin site verified by team. 14:02:05 Fire Safety Assessment: A--An alcohol-based skin anteseptic being used preoperatively., C--Open oxygen or nitrous oxide is being used., D--An ESU, laser, or fiber-optic light is being used. 14:02:08 Physical assessment completed. ASA score P 2 - A patient with mild syst emic disease as per Abrahan Gomez MD. 14:02:12 Sedation plan: IV Moderate Sedation Medication:Versed, Fentanyl 14:02:18 Use device set Radial Dx or PCI 14:02:21 Procedure started. 14:02:32 Local anesthetic to right radial artery with Lidocaine 2% by Abrahan Tompkins dealdo BHAT.INITIAL ACCESS ONLY 14:02:34 Versed 2 mg I.V. was administered by Alex Diaz RN; for sedation; 14:02:41 Fentanyl 100 mcg I.V. was administered by Alex Diaz RN; for sedat ion; 14:02:44 A 6 Fr Short sheath was inserted into the Right Radial artery 14:02:49 ACIST Syringe (76926) opened to sterile field. 14:02:49 Medline Cath Pack ([id number]) opened to sterile field. 14:02:50 Bag Decanter (2002S) opened to sterile field. 14:02:50 DIAGNOSTIC WIRE .035 260cm J wire (364132) opened to sterile field. 14:02:51 ACIST Hand Control (07748) opened to sterile field. 14:02:51 ACIST Manifold (51446) opened to sterile field. 14:02:52 Tegaderm 4 x 4 (1626W) opened to sterile field. 14:02:56 SHEATH 6FR Slender (93-4170) opened to sterile field. 14:03:09 A DIAGNOSTIC [place] 110cm 5 Fr catheter ([id number]) was advanced over the w eva and used for Procedure. 14:03:42 LV gram done using FLORES 14:03:59 Radial Cocktail (Verapomil 2mg/Nitro 400mcg/Heparin 1500units) 1 syring e I.A. was administered by Abrahan Gomez MD; for vasodilation; 14:04:09 Versed 1 mg I.V. was administered by Alex Diaz RN; for sedation; 14:04:20 EF : 70 % 14:05:43 RCA angiography performed. 14:05:58 Catheter removed. 14:06:00 Sheath upsized to a 6 Fr Short. 14:06:11 GUIDE 6FR XBC 3 ([id number]) opened to sterile field. 14:06:24 LCA angiography performed. 14:08:00 Catheter removed. 14:08:01 Proceeding to intervention. 14:08:14 6 Fr XBC3 guide catheter was inserted over the wire 14:08:22 choice pt wire advanced. 14:10:05 Heparin Bolus 4000 units I.V. was administered by Alex Diaz RN; f or anticoagulation; 14:10:33 choice wire advanced. 14:10:36 Wire advanced across lesion. 14:14:09 choice pt unable to cross down the diagonal 14:14:45 SuperCross Microcatheter 90 angle (5304) opened to sterile field. 14:14:45 CHOICE PT Floppy Straight 300cm guide wire ([id number]) opened to sterile field. 14:15:49 Supercross and long choice pt to second diagonal 14:16:09 supercross removed 14:17:38 Inflate balloon Inflation number: 1 A EUPHORA 2.5 x 12 Balloon ([id number]) was prepped and advanced across the 2nd Diag, then inflated to 18 REINIER for 0:07 (min:sec). 14:17:50 Inflation number: 2 The EUPHORA 2.5 x 12 Balloon ([id number]) was reinfla adelaida across the 2nd Diag, to 21 REINIER for 0:09 (min:sec). 14:18:13 Inflation number: 3 The EUPHORA 2.5 x 12 Balloon ([id number]) was reinfla adelaida across the 2nd Diag, to 21 REINIER for 0:11 (min:sec). 14:18:54 INFLATOR Merit BasixCompak (ID8935) opened to sterile field. 14:18:55 CHOICE PT Extra Support 182cm wire ([id number]) opened to sterile field. 14:18:56 CHOICE PT Extra Support 182cm wire ([id number]) opened to sterile field. 14:19:14 everything is out of diagonal 14:20:28 -ADVANC ED 14:25:03 Place stent Inflation Number: 1 A LORENA RX 3.5 x 28 stent ([id number]) was prepped and advanced across the Mid LAD. The stent was deployed at 13 REINIER for 0:05 (min:sec). 14:25:10 Stent catheter was removed intact over wire. 14:25:11 Balloon removed over the wire. 14:25:12 Wire removed. 14:25:38 Sheath removed intact; hemostasis achieved with Mechanical Compression to the Right Radial artery. 14:25:41 Procedure ended.(Physican Out) 14:25:55 Fluoroscopy time 09.70 minutes. 14::58 Flurop Dose total: 1214 14:25:58 Fluoroscopy dose: 1214 mGy 14:26:02 Contrast amount:Isovue 300 84ml. 14:26:04 Sharps counted by scrub and verified by R.N. 14:26:06 TR band inflated with 11cc of air. 14:26:08 Insertion/operative site no bleeding no hematoma. 14:26:16 Post Procedure Pulses reassessed and unchanged 14:26:20 Post-procedure physical assessment completed. ASA score P 2 - A patient with mild systemic disease as per Abrahan Gomez MD. 14:26:23 Post procedure rhythm: unchanged. 14:26:25 Estimated blood loss: 10 ml 14:26:27 Post procedure instruction explained to patient.Patient verbalizes understanding. 14:27:06 Procedure type changed to Cath procedure, Diagnostic procedure, LHC, LH C w/Coronaries, Sedation Charges, Moderate Sedation up to 30 minutes, PCI procedure, Coronary Stent, Coronary Stent Initial, PTCA, PTCA Additional 14:27:08 Procedure and supply charges have been captured, reviewed, submitted an d are correct. 14:28:03 Procedure Complication : No complications 14:28:06 Vital chart was stopped 14::08 Report given to Pre/Post Procedure Room. 14:28:12 Patient transfered to Pre/Post Procedure Room with Stretcher. 14:28:14 Procedure ended. 14:28:14 Full Disclosure recording stopped 14:28:19 End room use (Document Last) Intervention Summary Intervention Notes Time ActionType Lesion and Equipment Action# Pressure Duration Attributes Used 14:17:38 Inflate 2nd Diag EUPHORA 2.5 1 18 00:07 balloon x 12 Balloon ([id number]) 14:17:50 Reinflate 2nd Diag EUPHORA 2.5 2 21 00:09 balloon x 12 Balloon ([id number]) 14:18:13 Reinflate 2nd Diag EUPHORA 2.5 3 21 00:11 balloon x 12 Balloon ([id number]) 14:25:03 Place stent Mid LAD LORENA RX 1 13 00:05 3.5 x 28 stent ([id number]) Device Usage Item Name Manufacture Quantity Catalog Number [facility] Lot# / Charge Number Stock Stock Serial# Code ACIST Syringe Acist 1 80776 208783 919803 469160 20 (92545) [employer] Medline Cath Medline 1 [id number] 51156 040399 5 Pack ([id number]) Bag Decanter Microtek 1 216329 20254 114768 5 (2002S) Medical Inc. DIAGNOSTIC St Haseeb 1 962432 704631 737381 845547 30 WIRE .035 260cm J wire (180637) ACIST Hand Acist 1 58251 838746 542195 577215 5 Control Medical (27299) Systems Inc ACIST Acist 1 22635 444877 287939 421072 5 Manifold Medical (22323) Systems Inc Tegaderm 4 x 3M 1 1626W 787061 714778 450441 5 4 (1626W) SHEATH 6FR Terumo 1 [id number] 104628 486885 278012 5 Slender (80-1060) DIAGNOSTIC Terumo 1 405013 084574 026699 775232 5 [place] 110cm 5 Fr catheter (608437) GUIDE 6FR XBC Cardinal 1 [id number] 002676 96539 531241 5 3 ([id number]) Health SHEATH 6FR Terumo 1 OTH744 760194 941603 565776 40 [place] (ZTH362) SuperCross Vascular 1 5304 313402 342778 558398 5 Microcatheter Solutions 90 angle (5304) CHOICE PT [place] 1 [id number] 769063 160399 846147 5 [employer] Straight 300cm guide wire (35633967) EUPHORA 2.5 x Medtronic 1 [id number] 457393 521037 577451 5 [id number] 12 Balloon ([id number]) INFLATOR Merit 1 DR2660 193883 243278 144963 15 [facility] Medical BasixCompak (LW0730) CHOICE PT [place] 2 [id number] 060205 452250 942905 5 Extra Support Scientific 182cm wire ([id number]) LORENA RX 3.5 Pat[place] 1 [id number] 418889 0082870 080150 5 [id number] x 28 stent Vascular ([id number]) Signature Audit [place] Stage Time Signature Unsigned Intra-Procedure 05/01/2018 Selena Valdez 2:28:49 PM RT(R) Signatures Monitor : Selena Valdez Signature : RT Date : Time : [place] [address] [place] [address]
[~2018-05-01 07:16] MED LIST changes: +ALLERGY RELIEF PO; +BAYER CHEWABLE81 MG PO
[2018-05-01 07:20] VITALS: Ht 167.6 cm; Wt 73.5 kg
[2018-05-01] MEDS ORDERED: HYDROCHLOROTHIA25 MG PO (07:25)
[2018-05-01 08:45] LABS: CKMB 0.7 U/L (0.0-3.6); CREATINE KINASE 46 UL (21-232); TROPONIN-I < 0.017 ng/mL (0.000-0.060)
[2018-05-01 09:53] LABS: BASOPHILS 0.5 % (0-2); EOSINOPHILS 2.1 % (0-7); HEMATOCRIT 45.6 % (42.0-54.0); HEMOGLOBIN 16.2 g/dL (13.5-17.5); IMMATURE GRANULOCYTES 0.3 % (0-5); LYMPHOCYTES 20.6 % (15-50); MCH 29.3 pg (26.0-34.0); MCHC 35.5 g/dL (31.0-37.0); MCV 82.6 fL (80.0-100.0); MONOCYTES 11.9 % (2-11); NEUTROPHILS 64.6 % (40-80); PLATELET COUNT 134 10x3/uL (130-400); RBC 5.52 10x6/uL (4.20-6.10); RDW 13.7 % (11.5-14.5); WBC 6.2 10x3/uL (4.8-10.8)
[2018-05-01 12:49] VITALS: BP 110/65
[2018-05-01 14:24] LABS: CKMB 0.7 U/L (0.0-3.6); CREATINE KINASE 35 UL (21-232); TROPONIN-I < 0.017 ng/mL (0.000-0.060)
--- NOTE | 2018-05-01 14:25 | CN ---
PATIENT NAME:CINDA CHEN JR MEDICAL RECORD: [id number] : 58 LOCATION:D[facility] ADMIT DATE: ACCOUNT: [id number] CONSULTING PHYSICIAN: MIKI HERNANDEZ MD REFERRING PHYSICIAN: MIKI HERNANDEZ MD DATE OF CONSULTATION: 05/01/2018 DIAGNOSES: 1. Unstable angina. 2. Coronary artery disease. 3. Previous multivessel percutaneous transluminal coronary angioplasty stent. 4. Hypertension. 5. Hyperlipidemia. HISTORY OF PRESENT ILLNESS: This is a gentleman well known to us with a past history of coronary artery disease, previous multivessel stent, the last being in January. He did well until the last week. He became more short of breath and now he has begun having chest pain. His chest pain is progressive just like that of his previous angina, multiple episodes today and yesterday, progressing in an unstable fashion. PHYSICAL EXAMINATION: GENERAL APPEARANCE: Well-nourished, well-developed, appears stated age. Level of distress, comfortable. PSYCHIATRIC: Mental status, alert, normal affect. Orientation, oriented to time, place and person. EYES: Lids and conjunctiva, noninjected. No discharge, no pallor. ENT: Lips, teeth, gums, normal dentition. Oropharynx, no cyanosis, no pallor. NECK: Carotid arteries, bilateral normal upstroke, no bruits, no thrills. JUGULAR VEINS: No jugular venous pressure or distention. CERVICAL LYMPH NODES: Nontender, nonenlarged. THYROID: Not enlarged. Nontender. No nodules. LUNGS: Respiratory effort, unlabored. CHEST: Normal curvature. No thoracic deformity. No chest wall tenderness. Percussion, resonant. Auscultation, clear. No wheezes, no rales, no rhonchi. CARDIOVASCULAR: Precordial exam, nondisplaced. No heaves or pericardial thrills. Rate and rhythm, regular. Heart sounds, normal S1, normal S2. No S3, no gallop, no rub. Systolic murmur, not heard. Diastolic murmur, not heard. EXTREMITIES: No cyanosis, no edema. Peripheral pulses, full and equal in all extremities, except as noted. No bruits appreciated. ABDOMEN: Soft, nondistended. Normal aorta. No bruit. Nontender. No masses. Liver, nontender, no hepatomegaly. Spleen, nontender, no splenomegaly. MUSCULOSKELETAL: No joint tenderness. No joint swelling. No erythema. NEUROLOGICAL: Normal gait, normal strength, normal tone. SKIN: Warm and dry. OVERALL IMPRESSION: Chest pain compatible with angina in an unstable progressive fashion. We will proceed with coronary angiography. Further care depends upon findings of the angiography. TRANSINT:[id number] Voice Confirmation ID: [id number] DOCUMENT ID: [id number] CONSULT REPORT [id number] CINDA CHEN JR, JEFFREY MD at 1425 CC: [id number] DICTATION DATE: 05/01/18 1030 DRUM STENCILER: 05/01/18 1218 REG [facility] [address] [id number]
--- NOTE | 2018-05-01 14:59 | NUR ---
1435 RECIEVED PT FROM FUDGER. PT IS ALERT, DENIES ANY C/O PAIN OR NAUSEA. TR BAND CDI TO RIGHT WRIST, NO BLEEDING OR HEMATOMA NOTED. FINGERS WARM AND CAP REFILL IS BRISK. 1450 PT ALERT, DENIES ANY C/O. DR HERNANDEZ HAS ROUNDED ON PT. SANDWICH AND COFFEE SERVED PER PT REQUEST, AT BEDSIDE, NSR, RATE 69. BP IS 101/60.
[2018-05-01] MEDS ORDERED: PRAVACHOL40 MG PO (15:10)
--- NOTE | 2018-05-01 15:21 | NUR ---
1515 PT IS SITTING UP IN BED, WATCHING TV. DENIES ANY C/O. TR BAND IS CDI, FINGERS WARM AND CAP REFILL IS BRISK. VSS, AT BEDSIDE,CALL LIGHT IN REACH.
--- NOTE | 2018-05-01 15:50 | NUR ---
TR BAND IS CDI, PT HAS KENDY SANDWICH WITH NO C/O NAUSEA. FINGERS WARM AND CAP REFILL IS BRSIK. PT IS ALERT AND DENIES ANY C/O. REQUEST MORE COFFEE AND THIS SERVED.
--- NOTE | 2018-05-01 16:20 | NUR ---
TR BAND IS CDI TO RIGHT WRIST, FINGERS WARM AND CAP REFILL IS BRIS, NSR, RATE IS 67. BP 100/59. AT BEDSIDE. PT SITTING UP AND VISITING WITH FAMILY AND FRIENDS. CALL LIGHT IN REACH.
--- NOTE | 2018-05-01 16:55 | NUR ---
PT SITTING UP IN BED, VISITING WITH FRIENDS. TR BAND IS CDI TO RIGHT WRIST, FINGERS WARM AND CAP REFILL IS BRISK. NSR, RATE 68, BP IS 104/63. SAT IS 96% ON ROOM AIR. PT IS ALERT AND DENIES ANY C/O.
--- NOTE | 2018-05-01 17:40 | NUR ---
3CC OF AIR REMOVED FROM TR BAND. BLEEDING NOTED. 2CC AIR PLACED BACK INTO TR BAND TO STOP BLEEDING. VSS. WILL CONTINUE TO MONITOR CLOSELY.
--- NOTE | 2018-05-01 17:55 | NUR ---
3CC OF AIR REMOVED FROM TR BAND WITH NO BLEEDING NOTED. VSS. WILL CONTINUE TO MONITOR.
--- NOTE | 2018-05-01 18:15 | NUR ---
3CC OF AIR REMOVED FROM TR BAND WITH NO BLEEDING NOTED.
--- NOTE | 2018-05-01 18:25 | NUR ---
3CC OF AIR REMOVED FROM TR BAND WITH NO BLEEDING NOTED.
--- NOTE | 2018-05-01 18:30 | NUR ---
DISCHARGE INSTRUCTIONS GIVEN ALONG WITH PRESCRIPTION FOR PRAVACHOL. VERBALIZED UNDERSTANDING. RIGHT PIV D/C'D WITH CATHETER INTACT, BAND AID TO SITE. UP TO BEDSIDE TO GET DRESSED.
--- NOTE | 2018-05-01 18:45 | NUR ---
REMAINING AIR REMOVED FROM TR BAND WITH NO BLEEDING NOTED. DRESSING PLACED TO SITE. TAKEN OUT VIA WHEELCHAIR BY CATH JUICE STANDARDIZER. LEFT FACILTIY WITH FAMIYL AND ALL PERSONAL BELONGIGNS.
== END 2018-05-01 18:45 | disposition home or self-care (01) ==
LOC: D.CATH 07:16 → D.ER 07:16 → EDSTATUS 11:01 → D.CATH 18:45
PROVIDERS: Emergency Medicine; ATTEND Internal Medicine Interventional Cardiology
DX: I25.119 Atherosclerotic heart disease of native coronary artery with unspecified angina pectoris (principal); Z01.812 Encounter for preprocedural laboratory examination
CPT/HCPCS: 92921; 93458; C9600

== ENCOUNTER 2018-05-10 14:23 | Inpatient (IN) | payer MEDICARE ==
[~2018-05-10] VITALS: Ht 167.6 cm; Wt 74.6 kg
--- NOTE | ~2018-05-10 | HEMODYNAMI ---
PATIENT:CINDA CHEN JR MEDICAL RECORD: [id number] : 58 LOCATION:[address] ADMISSION DATE: 05/10/18 Generatedon:05/11/201813:55 Patient name: CINDA CHEN Patient #: [id number] SSN: : 1960 Date of study: 05/11/2018 Page: Of Hemodynamic Procedure Report Patient Data Patient Demographics Procedure consent was obtained First Name: CINDA Gender: Male Last Name: APRIL Suffix: [facility] Initial: JOSUÉ : 1960 Patient #: [id number] Age: 57 year(s) Race: Additional ID: [id number] Contact details Address: [address] [place] [address] [employer] State: [place] City: [place] Zip code: [address] Past Medical History Allergies Allergen Reaction Date Comments Reported Morphine 06/04/2015 Other allergy 07/22/2017 Morphine Morphine 02/24/2018 Other allergy 05/01/2018 Morphine Admission Admission Data Admission Date: 05/10/2018 Admission Time: 21:04 Room #: D.2132 Procedure Procedure Types Cath Procedure Diagnostic Procedure [facility] w/Coronaries Sedation Charges Moderate Sedation up to 15 minutes Procedure Description Procedure Date Procedure Date: 05/11/2018 Procedure Start Time: 13:37 Procedure End Time: 13:54 Procedure Staff Name Function Ismael Robertson MD Performing Physician Betty Jay RT Monitor Alex Diaz RN Nurse Italo Quezada RT Scrub Procedure Data Cath Procedure Fluoroscopy Diagnostic fluoroscopy Total fluoroscopy Time: 2.4 time: 2.4 min min Diagnostic fluoroscopy Total fluoroscopy dose: 690 dose: 690 mGy mGy Contrast Material Contrast Material Type Amount (ml) Isovue 300 47 Entry Location Entry Primary Successful Side Size Upsize Upsize Entry Closure Madrigal ccessful Closure Location (Fr) 1 (Fr) 2 (Fr) Remarks Device Remarks Radial Right 6 Fr Mechanical artery Short Compression Estimated blood loss: 5 ml Diagnostic catheters Device Type Used For End Catheter Placement DIAGNOSTIC [place] 110cm 5 LV Angiography Fr catheter ([id number]) DIAGNOSTIC [place] 110cm 5 Left Coronary Fr catheter (735400) Angiography DIAGNOSTIC [place] 110cm 5 Right Coronary Fr catheter ([id number]) Angiography Procedure Complications No complications Procedure Medications Medication Administration Route Dosage 0.9% NaCl I.V. 100 ml/hr Oxygen etCO2 Nasal cannula 2 l/min Heparin Flush Bag added to field 2 bags (1000units/500ml NS) Lidocaine 2% added to field 20 Radial Cocktail added to field 1 syringe (Verapomil 2mg/Nitro 400mcg/Heparin 1500units) Versed I.V. 2 mg Fentanyl I.V. 100 mcg Radial Cocktail I.A. 1 syringe (Verapomil 2mg/Nitro 400mcg/Heparin 1500units) Cardene I.C. 300 mcg Hemodynamics Rest Heart Rate: 82 (bpm) Pressure Samples Time Site Value (mmHg) Purpose Heart Use Rate(bpm) 13:40 LV 74/10,10 EDP 92 13:40 AO 75/54(63) Pullback 88 13:40 LV 77/4,5 Pullback 88 Gradients Valve Time Site 1 Site 2 Mean SEP/DFP Peak To Heart Use (mmHg) (sec/min) Peak Rate (mmHg) (bpm) Aortic 13:40 LV AO 2 10 2 88 77/4,5 75/54(63) Calculations Valve P-P Mean Valve Index Valve Source Name Gradient Area Flow (cm2) Aortic 2 2 2 2 Snapshots Pre Cath Intra NCS Post Cath Vital Signs Time Heart Resp SPO2 etCO2 NIBP Rhythm Pain Sedation Rate (ipm) (%) (mmHg) (mmHg) Status Level (bpm) 13:25:57 84 11 96 0 107/74(93) NSR 0 (11) 10(A) , No pain 13:29:58 85 14 96 0 105/69(86) NSR 0 (11) 10(A) , No pain 13:34:02 82 14 95 26.1 103/62(79) NSR 0 (11) 10(A) , No pain 13:38:06 78 18 96 29.1 99/61(77) NSR 0 (11) 10(A) , No pain 13:42:08 85 19 94 29.1 97/60(84) NSR 0 (11) 10(A) , No pain 13:46:07 81 18 94 28.3 103/66(87) NSR 0 (11) 10(A) , No pain 13:50:11 73 14 96 20.9 98/62(78) NSR 0 (11) 10(A) , No pain 13:54:13 73 12 93 1.4 97/65(79) NSR 0 (11) 10(A) , No pain Medications Time Medication Route Dose Verified Delivered Reason Notes Effectiveness by by 13:29:52 0.9% NaCl I.V. 100 Alex Alex Per ml/hr Emily Diaz physician RN RN 13:30:01 Oxygen etCO2 2 l/min Alex Alex for low 02 Nasal Lorigan Lorigan sats cannula RN RN 13:30:11 Heparin Flush added 2 bags Alex Alex used for Bag to Lorigan Lorbrittney procedure (1000units/500ml field RN CLEMENT NS) 13:30:22 Lidocaine 2% added 20ml Alex Alex for local to vial Lorigan Lorigan anesthetic field CLEMENT VAUGHAN 13:30:40 Radial Cocktail added 1 Alex Alex used for (Verapomil to syringe Lorigan Lorigan procedure 2mg/Nitro field CLEMENT VAUGHAN 400mcg/Heparin 1500units) 13:32:05 Versed I.V. 2 mg Alex Alex for sedation Emily Diaz RN, RN 13:32:13 Fentanyl I.V. 100 mcg Alex Alex for sedation Emily Diaz RN, RN 13:39:14 Radial Cocktail I.A. 1 Alex Ismael for (Verapomil syringe Ashleyigan Marcelo vasodilation 2mg/Nitro CLEMENT HBAT 400mcg/Heparin 1500units) 13:47:02 Cardene I.C. 300 mcg Alex Ismael for Lorigan Marcelo vasodilation CLEMENT BHAT Procedure Log Time Note 12:36:46 Time tracking: Regular hours (M-F 7:00 - 5:00) 12:36:51 Plan of Care:Hemodynamics will remain stable., Cardiac rhythm will remain stable., Comfort level will be maintained., Respiratory function will remain adequate., Patient/ family verbilizes understanding of procedure., Procedure tolerated without complication., Recovers from procedure without complications.. 13:05:40 Betty Jay RT(R) sent for patient. Start room use. 13:20:53 Patient received from PCU to CCL 2 Alert and oriented. Tansferred to table in Supine position. 13:20:54 Warm blankets applied, and ervin hugger turned on for patient comfort. 13:20:54 Correct patient and procedure confirmed by team. 13:20:56 Signed procedure consent form obtained from patient. 13:20:57 ECG and BP/O2 sat monitors applied to patient. 13:20:58 Full Disclosure recording started 13:24:54 Vital chart was started 13:24:56 Baseline sample Acquired. 13:24:58 Rhythm: sinus rhythm 13:25:43 H&P Date Dictated: 05/10/2018 Within 30 days and on chart.. 13:25:44 Pre-procedure instructions explained to patient. 13:25:45 Pre-op teaching completed and patient verbalized understanding. 13:25:48 Family in patients room. 13:25:49 Patient NPO since Midnight. 13:25:57 Is the patient allergic to Iodine/contrast media? No. 13:25:58 Is patient on blood thinner?Yes 13:26:01 ACC The patient was administered the following blood thiners within the last 24 hours: ACCPlavix 13:26:02 Patient diabetic? No. 13:26:05 Previous problem with sedation/anesthesia? No ? 13:26:06 Snore? Yes 13:26:07 Sleep apnea? No 13:26:08 Deviated septum? No 13:26:09 Opens mouth fully? Yes 13:26:09 Sticks out tongue? Yes 13:26:11 Airway obstruction? No ? 13:26:14 Dentures? Yes out 13:26:17 Pre procedure: right dorsailis pedis pulse 2+ Normal; easily identifiable; not easily obliterated 13:26:19 Modified Juan's test Ulnar < 7 seconds 13:26:22 Patient pain scale 0/10 ?. 13:26:28 IV patent on arrival in left forearm with 0.9% NaCl at [facility]. 13:26:30 Lab results completed and on chart. 13:26:33 Right groin area was prepped with chlora-prep and draped in sterile fashion 13:26:34 Alarms reviewed by R. N. 13:26:34 Sharps counted by scrub and verified by R.N. 13:29:52 0.9% NaCl 100 ml/hr I.V. was administered by Alex Diaz RN; Per physician; 13:30:01 Oxygen 2 l/min etCO2 Nasal cannula was administered by Alex Diaz RN; for low 02 sats; 13:30:11 Heparin Flush Bag (1000units/500ml NS) 2 bags added to field was administered by Alex Diaz RN; used for procedure; 13:30:22 Lidocaine 2% 20ml vial added to field was administered by Alex Diaz RN; for local anesthetic; 13:30:40 Radial Cocktail (Verapomil 2mg/Nitro 400mcg/Heparin 1500units) 1 syringe added to field was administered by Alex Diaz RN; used for procedure; 13:30:46 Final Timeout: patient, procedure, and site verified with staff and physician. All members of the team are in agreement. 13:30:54 Right Radial site verified by team. 13:30:57 Maximum allowable Isovue 300 dose 300ml. Physician notified. (300ml for normal creatinines. For patients with creatinine of 1.7 or higher multiply weight(kg) x 5 divided by creatinine.) 13:31:00 Fire Safety Assessment: A--An alcohol-based skin anteseptic being used preoperatively., C--Open oxygen or nitrous oxide is being used., D--An ESU, laser, or fiber-optic light is being used. 13:31:04 Physical assessment completed. ASA score P 2 - A patient with mild systemic disease as per Ismael Robertson MD. 13:31:07 Sedation plan: IV Moderate Sedation Medication:Versed, Fentanyl 13:31:10 Use device set Radial Dx or PCI 13:31:11 ACIST Syringe (26001) opened to sterile field. 13:31:11 Medline Cath Pack ([id number]) opened to sterile field. 13:31:12 Bag Decanter () opened to sterile field. 13:31:12 DIAGNOSTIC WIRE .035 260cm J wire (063669) opened to sterile field. 13:31:13 ACIST Hand Control (50768) opened to sterile field. 13:31:13 ACIST Manifold (69779) opened to sterile field. 13:31:14 MBrace Wrist Support ([id number]) opened to sterile field. 13:31:15 SHEATH 6FR Slender (74-1060) opened to sterile field. 13:32:05 Versed 2 mg I.V. was administered by Alex Diaz RN; for sedation; 13:32:13 Fentanyl 100 mcg I.V. was administered by Alex Diaz RN; for sedation; 13:34:08 Zero performed for pressure channel P1 13:37:27 Procedure started. 13:37:34 Local anesthetic to right radial artery with Lidocaine 2% by Ismael Robertson MD.INITIAL ACCESS ONLY 13:38:16 A 6 Fr Short sheath was inserted into the Right Radial artery 13:39:14 Radial Cocktail (Verapomil 2mg/Nitro 400mcg/Heparin 1500units) 1 syringe I.A. was administered by Ismael Robertson MD; for vasodilation; 13:39:22 A DIAGNOSTIC [place] 110cm 5 Fr catheter (856761) was advanced over the wire and used for LV Angiography. 13:40:28 LV gram done using FLORES 13:40:31 Injector settings: Ml/sec: 5, Volume: 15, 13:40:36 EF : 55 % 13:41:30 A DIAGNOSTIC [place] 110cm 5 Fr catheter (124522) was advanced over the wire and used for Left Coronary Angiography. 13:42:49 A DIAGNOSTIC [place] 110cm 5 Fr catheter (021132) was advanced over the wire and used for Right Coronary Angiography. 13:47:02 Cardene 300 mcg I.C. was administered by Ismael Robertson MD; for vasodilation; 13:48:17 Catheter removed. 13:48:28 Sheath removed intact; hemostasis achieved with Mechanical Compression to the Right Radial artery. 13:48:40 Procedure ended.(Physican Out) 13:48:53 Fluoroscopy time 02.40 minutes. 13:49:05 Contrast amount:Isovue 300 47ml. 13:49:07 Sharps counted by scrub and verified by R.N. 13:49:09 TR band inflated with 12cc of air. 13:49:10 Insertion/operative site no bleeding no hematoma. 13:49:14 Post right radial artery:stable, clean and dry 13:49:15 Post Procedure Pulses reassessed and unchanged 13:49:18 Post-procedure physical assessment completed. ASA score P 2 - A patient with mild systemic disease as per Ismael Robertson MD. 13:49:20 Post procedure rhythm: unchanged. 13:49:25 Estimated blood loss: 5 ml 13:49:27 Post procedure instruction explained to patient.Patient verbalizes understanding. 13:49:27 Patient needs reinforcement of post procedure teaching. 13:49:44 Procedure type changed to Cath procedure, Diagnostic procedure, LHC, LHC w/Coronaries, Sedation Charges, Moderate Sedation up to 15 minutes 13:50:00 Procedure Complication : No complications 13:50:06 See physician's report for complete and final results. 13:50:10 TR BAND Standard ([id number]) opened to sterile field. 13:53:35 Flurop Dose total: 690 13:53:35 Fluoroscopy dose: 690 mGy 13:54:16 Procedure and supply charges have been captured, reviewed, submitted and are correct. 13:54:18 Vital chart was stopped 13:54:24 Report given to PCU. 13:54:26 Patient transfered to PCU with Stretcher. 13:54:28 Procedure ended. 13:54:28 Full Disclosure recording stopped 13:54:36 End room use (Document Last) Device Usage Item Name Manufacture Quantity Catalog Hospital Part Current Minimal Lot# / Number Charge Number Stock Stock Serial# Code ACIST Acist 1 97229 127440 461042 [id number] 20 Syringe Medical (84376) Systems Inc Medline Medline 1 [id number] 389528 98038 048216 5 Cath Pack ([id number]) Bag Microtek 1 2001S 017232 09828 903138 5 Decanter Medical Inc. () DIAGNOSTIC St Haseeb 1 334475 990014 371656 495691 30 WIRE .035 260cm J wire (324133) ACIST Hand Acist 1 94562 682463 087307 781218 5 Control Medical (06334) Systems Inc ACIST Acist 1 69292 835951 433278 131039 5 Manifold Medical (41565) Systems Inc MBrace Advanced 1 140-0250-00 452680 78780 476875 5 Wrist Vascular Support Dynamics ([id number]) SHEATH 6FR Terumo 1 [id number] 119891 272720 418780 5 Slender (80-1060) DIAGNOSTIC Terumo 1 40-9143 698029 710209 051752 5 [place] 110cm 5 Fr catheter (046311) TR BAND Terumo 1 [id number] 176100 484528 479910 40 Standard ([id number]) Signature Audit Casa Stage Time Signature Unsigned Intra-Procedure 05/11/2018 Betty 1:54:49 PM Counts RT(R) Signatures Monitor : Betty Signature : Counts RT Date : Time : [address] [address]
[~2018-05-10 14:23] MED LIST changes: +HYDROCHLOROTHIA25 MG PO; +PRAVACHOL40 MG PO
[2018-05-10] MEDS ORDERED: BAYER CHEWABLE81 MG PO (14:37)
--- NOTE | 2018-05-10 15:03 | NUR ---
NTG HELD. BP 107/65.
[2018-05-10 15:04] LABS: BASOPHILS 0.4 % (0-2); EOSINOPHILS 2.1 % (0-7); HEMATOCRIT 44.5 % (42.0-54.0); HEMOGLOBIN 16.1 g/dL (13.5-17.5); IMMATURE GRANULOCYTES 0.6 % (0-5); LYMPHOCYTES 23.5 % (15-50); MCH 29.4 pg (26.0-34.0); MCHC 36.2 g/dL (31.0-37.0); MCV 81.2 fL (80.0-100.0); MEAN PLATELET VOLUME 9.9 fL (7.4-10.4); MONOCYTES 10.2 % (2-11); NEUTROPHILS 63.2 % (40-80); PLATELET COUNT 135 10x3/uL (130-400); RBC 5.48 10x6/uL (4.20-6.10); RDW 13.5 % (11.5-14.5); WBC 7.1 10x3/uL (4.8-10.8)
[2018-05-10 15:12] LABS: APTT 29.9 SECONDS (22.8-39.4); INR 1.03 (0.85-1.17); PROTIME 13.1 SECONDS (11.6-15.0)
[2018-05-10 15:26] LABS: ALBUMIN 4.1 g/dL (3.4-5.0); ALKALINE PHOSPHATASE 82 U/L (46-116); ALT (SGPT) 13 U/L (10-68); BILIRUBIN - TOTAL 0.73 mg/dL (0.2-1.3); CALC OSMOLALITY 282 mosm/kg (275-300); CALCIUM 8.9 mg/dL (8.5-10.1); CARBON DIOXIDE 24.7 mmol/L (21.0-32.0); CHLORIDE - SERUM 102 mmol/L (98-107); CREATININE - SERUM 1.3 mg/dL (0.6-1.3); GLUCOSE 96 mg/dL (74-106); POTASSIUM - SERUM 3.7 mmol/L (3.5-5.1); PROTEIN - SERUM 7.1 g/dL (6.4-8.2); SODIUM 139 mmol/L (136-145); UREA NITROGEN 26 mg/dL (7-18); eGFR NON AFRICAN AMERICAN 60 mL/min (90-120)
[2018-05-10 15:34] LABS: CKMB 0.7 U/L (0.0-3.6); CREATINE KINASE 47 UL (21-232); MAGNESIUM - SERUM 1.9 mg/dL (1.8-2.4)
[2018-05-10 15:35] LABS: TROPONIN-I < 0.017 ng/mL (0.000-0.060)
--- NOTE | 2018-05-10 19:00 | NUR ---
assumed care at this time. pt lying in bed watching tv with family at bedside. denies pain or needs.
--- NOTE | 2018-05-10 21:16 | NUR ---
REPROT GIVEN TO JESSY SHARMA. UNABLE TO TRANSPORT PT D/T ROOM DIRTY.
--- NOTE | 2018-05-10 22:45 | NUR ---
PT ARRIVED TO ROOM 2131 PT IS AAO, UP AD MADHAVI. 97.9 TEMP, BP 113/69, HR 69, 95% ROOM AIR WT 168.6 HT 5'6" PT HAS A RIGHT FOREARM 20G PIV. PATENT WITH TIAGO ESCALANTE. QUICK START, MED REC AND HISTORY COMPLETE.
[2018-05-11] VITALS (7 sets, daily range): BP systolic 87–126; BP diastolic 56–76; Ht 167.6 cm; Wt 74.6 kg
--- NOTE | 2018-05-11 01:55 | NUR ---
PT ASLEEP. RESP EVEN AND UNLABORED. BEDLOW AND CALL LIGHT IN REACH. PT WILL CALL FOR ASSIST WHEN NEEDED. WILL CPOC
--- NOTE | 2018-05-11 01:59 | NUR ---
PT IS 70 SINUS ON THE MONITOR
--- NOTE | 2018-05-11 07:10 | NUR ---
REPORT RECIEVED FORM PEDIATRIC SOCIAL WORKER. PATIENT LAYING IN BED ON BACK AWAKE, ALERT AND ORIENTED X4. VSS. PATIENT DENEIS ANY NEEDS OR PAIN. AT BEDSIDE. PATIENT NPO AWAITING CONSULT FROM DR MIRANDA. SR UP X 2 BED IN LOW POSTION AND CALL LIGHT IN REACH.
--- NOTE | 2018-05-11 08:00 | NUR ---
PATIENT REFUSED SCD'S
[2018-05-11 09:13] LABS: BASOPHILS 0.1 % (0-2); EOSINOPHILS 0.1 % (0-7); HEMATOCRIT 48.8 % (42.0-54.0); HEMOGLOBIN 17.9 g/dL (13.5-17.5); IMMATURE GRANULOCYTES 0.3 % (0-5); LYMPHOCYTES 8.2 % (15-50); MCH 29.7 pg (26.0-34.0); MCHC 36.7 g/dL (31.0-37.0); MCV 80.9 fL (80.0-100.0); MEAN PLATELET VOLUME 10.2 fL (7.4-10.4); MONOCYTES 1.4 % (2-11); NEUTROPHILS 89.9 % (40-80); PLATELET COUNT 161 10x3/uL (130-400); RBC 6.03 10x6/uL (4.20-6.10); RDW 13.4 % (11.5-14.5)
[2018-05-11 09:28] LABS: CALCIUM 9.5 mg/dL (8.5-10.1); CARBON DIOXIDE 26.6 mmol/L (21.0-32.0); CHLORIDE - SERUM 99 mmol/L (98-107); CREATININE - SERUM 1.4 mg/dL (0.6-1.3); PHOSPHOROUS 3.7 mg/dL (2.5-4.9); POTASSIUM - SERUM 4.1 mmol/L (3.5-5.1); SODIUM 136 mmol/L (136-145); UREA NITROGEN 31 mg/dL (7-18); WBC 12.7 10x3/uL (4.8-10.8); eGFR NON AFRICAN AMERICAN 55 mL/min (90-120)
[2018-05-11 09:32] LABS: CALC OSMOLALITY 281 mosm/kg (275-300); GLUCOSE 154 mg/dL (74-106); TROPONIN-I < 0.017 ng/mL (0.000-0.060)
--- NOTE | 2018-05-11 10:00 | NUR ---
DR MIRANDA IN ROOM. NEW ORDERS RECIEVED FOR HEART CATH. PATIENT CONTINUES TO BE NPO, VSS AND DENING ANY NEEDS OR PAIN.
--- NOTE | 2018-05-11 12:00 | NUR ---
CALL RECEIVED FROM HEART CATH TEAM FOR PREOP. PATIENT PREOP GIVEN PER MAR ORDERS. PATIENT IS STABLE AND VSS.
--- NOTE | 2018-05-11 13:00 | NUR ---
PATIENT IS STABLE AND VSS. PATIENT TO POLICE INVESTIGATOR VIA BED AND POLICE INVESTIGATOR PERSONNEL.
--- NOTE | 2018-05-11 14:30 | NUR ---
PATIENT RETURNED FROM DANCE ARTIST. PATIENT IS AWAKE, ALERT . TR BAND TO RT RADIAL INTACT C/D/I/. VSS. PATIENT DENIES ANY NEEDS OR PAIN. AT BEDISIDE. WILL CONTINUE TO MONITOR CLOSELY.
--- NOTE | 2018-05-11 15:00 | NUR ---
PATIENT CONTINUES TO BE STABLE. VSS. TR BAND TO RT RADIUS C/D/I. NO BLEEDING, BRUISING OR HEMATOMA. NOTED. WILL CONTINUE TO MONITOR.
--- NOTE | 2018-05-11 15:30 | NUR ---
PATIENT RESTING COMFORTABLY. VSS. TR BAND INTACT NO BLEEDING , BRUISING OR HEMATOMA NOTED. 5CC'S OF AIR REMOVED. NO BLEEDING BRUISING OR HEMATOMA NOTED. VSS. WILL CONTIUE TO MONITOR.
--- NOTE | 2018-05-11 15:40 | NUR ---
REFUSED SCD'S UP AD MADHAVI
--- NOTE | 2018-05-11 16:15 | NUR ---
PATIENT IS UNCHANGED AND VSS. TR BAND INTACT TO RT RADIUS. NO BLEEDING , BRUISING OR HEMATOMA NOTED. LAST 5 CC OF AIR REMOVED. IMMEDIATE BRIGHT RED BLOOD NOTED TO SITE. 10CC'S OF AIR IMMEDIATELY REPLACED. NO ADDITIONAL BLEEDING NOTED. WILL CONTINUE TO MONITOR CLOSELY.
--- NOTE | 2018-05-11 19:30 | NUR ---
RESUMING CARE . PT SITTING UP IN BED A&O BREATH SOUNDS EVEN UNLABORED , PT HAS RT FA IV , TR BAND TO RT RADIUS 10CC STILL IN PLACE REMOVED 5CC NO BLOOD NOTED AT BEDSIDE , CL IN REACH WILL CONT TO MONITOR
[2018-05-12] VITALS: BP 90/48
[2018-05-12 04:00] VITALS: BP 98/56
[2018-05-12 06:25] LABS: BASOPHILS 0.1 % (0-2); EOSINOPHILS 0.5 % (0-7); HEMATOCRIT 44.9 % (42.0-54.0); IMMATURE GRANULOCYTES 0.4 % (0-5); LYMPHOCYTES 16.9 % (15-50); MCH 28.9 pg (26.0-34.0); MCHC 35.6 g/dL (31.0-37.0); MCV 81.2 fL (80.0-100.0); MEAN PLATELET VOLUME 10.2 fL (7.4-10.4); MONOCYTES 10.7 % (2-11); NEUTROPHILS 71.4 % (40-80); PLATELET COUNT 150 10x3/uL (130-400); RBC 5.53 10x6/uL (4.20-6.10); RDW 13.7 % (11.5-14.5); WBC 11.9 10x3/uL (4.8-10.8)
[2018-05-12 06:54] LABS: ANION GAP 13.7 mmol/L (8-16); CALCIUM 8.2 mg/dL (8.5-10.1); CARBON DIOXIDE 26.3 mmol/L (21.0-32.0); CREATININE - SERUM 1.5 mg/dL (0.6-1.3)
--- NOTE | 2018-05-12 07:30 | NUR ---
A/A/OX4. STATES HE IS HOPING TO GO HOME TODAY. DENIES ANY PAIN OR DISCOMFORT. RESP EVEN AND UNLABORED ON ROOM AIR. NO REQUESTS VOICED. ASSESSMENT COMPLETED. BED IN LOW POSITION WITH WHEELS LOCKED. SIDERAILS UP X 2 AND CALL LIGHT IN REACH. WILL CONTINUE POC.
[2018-05-12 08:00] VITALS: BP 105/69
[2018-05-12 12:00] VITALS: BP 101/60
--- NOTE | 2018-05-12 12:17 | CN ---
PATIENT NAME:CINDA CHEN JR MEDICAL RECORD: [id number] : 58 LOCATION:D. D.2132 ADMIT DATE: 05/10/18 ACCOUNT: [id number] CONSULTING PHYSICIAN: NEAL MIRANDA MD REFERRING PHYSICIAN: NATALIA CARUSO MD DATE OF CONSULTATION: 05/11/2018 HISTORY OF PRESENT ILLNESS: A 57-year-old gentleman with a history of coronary artery disease, status post multiple interventions of restenosis. He presented with chest pain and cardiac enzymes are negative, by his report typical for his angina. He reports no improvement in dyspnea since his previous intervention; however, he has not returned to exercise. We are asked to see him concerning his cardiovascular status. PAST MEDICAL HISTORY: Includes: 1. History of hypertension. 2. Hyperlipidemia. ALLERGIES: MORPHINE. MEDICATIONS: Include HCTZ 25 every day, aspirin 81 every day, pravastatin 40 every day, atenolol 25 every day, Plavix 75 every day. SOCIAL HISTORY: Nonsmoker, nondrinker. Easily takes care of his ADLs. Good family support. No set exercise program. REVIEW OF SYSTEMS: The patient reports easy bruising but reports no swollen glands. The patient reports no fever, no night sweats, no significant weight gain, no significant weight loss. No significant exercise tolerance. The patient reports no dry eyes, no irritation, no vision change. Patient reports no difficulty hearing and no ear pain. Patient reports no frequent nose bleeds or nose and sinus problems. Patient reports on arm pain on exertion. No shortness of breath while lying down. No history of heart murmur. Patient reports no cough, no wheezing or coughing up blood. Patient reports no abdominal pain, no vomiting. Normal appetite. No diarrhea and not vomiting blood. No nausea and no constipation. Patient reports no incontinence. No difficulty urinating. No hematuria. No increased frequency. Patient reports no muscle aches. No weakness, no arthralgias, no back pain. No swelling of the extremities. Patient reports no abnormal mole, no jaundice, no rashes. Reports no loss of consciousness. No weakness and no numbness. No seizures, dizziness, or headaches. The patient reports no depression, no sleep disturbance, feeling safe in a relationship and no alcohol abuse. Patient reports on fatigue. Reports no runny nose or sinus pressure. No itching, no hives, and no frequent sneezing. PHYSICAL EXAMINATION: GENERAL: Well-developed, well-appearing gentleman appears stated age. VITAL SIGNS: Blood pressure 119/76, pulse 95 and regular. HEENT: Normocephalic, atraumatic. NECK: No bruits noted. HEART: Regular. II/ systolic ejection murmur. LUNGS: Good air excursion. ABDOMEN: Soft, nontender. EXTREMITIES: Pulses 2+. No edema. CONSULT REPORT [id number] CINDA CHEN JR IMPRESSION: Recurrent chest pain post-stenting. At this point in time, we will plan for diagnostic angiography, probably would benefit at least from my standpoint cardiac rehab long-term given his concern about his marked shortness of breath. TRANSINT:[id number] Voice Confirmation ID: [id number] DOCUMENT ID: [id number] NEAL MIRANDA MD at 1217 CC: [id number] DICTATION DATE: 05/11/18 0847 MEDIA ANALYTICS MANAGER: 05/11/18 0925 [facility] [address] [place] [address]
--- NOTE | 2018-05-12 12:17 | OP ---
PATIENT NAME: CINDA CHEN JR MEDICAL RECORD: [id number] :58 LOCATION:D.M2 D.2132 ADMISSION DATE:05/10/18 SURGEON: NEAL MIRANDA MD DATE OF OPERATION: 05/11/2018 PROCEDURE: Left heart catheterization, selective coronary angiography, right radial approach. CATHETERS: A 5-Russian sheath, [place] catheter. The procedure was well tolerated. The patient returned to sol. Sheath was removed. TR band was placed. FINDINGS: Left ventriculography in 30-degree FLORES view: Normal wall motion and normal systolic function. CORONARY ANATOMY: LEFT MAIN: Left main is free of disease. LAD: Area of previous stenting is patent. There is a somewhat slow flow distally. CIRCUMFLEX: No fixed obstruction slow flow distally. RIGHT CORONARY ARTERY: Again, slow flow distally. IMPRESSION: Some slow flow. We did inject IC Cardene with some improvement in flow. Patent stents. No further obstructive coronary artery disease noted. TRANSINT:[id number] Voice Confirmation ID: [id number] DOCUMENT ID: [id number] NEAL MIRANDA MD at 1217 CC: [id number] DICTATION DATE: 05/11/18 1401 VACUUM KETTLE COOK: 05/11/18 2227 ADM IN [place] [id number] [place] [id number]
--- NOTE | 2018-05-12 12:17 | EC ---
PATIENT:CINDA CHEN JR DATE OF SERVICE: 05/10/18 SEX: M MEDICAL RECORD: [id number] DATE OF : 58 LOCATION:D.M2 D.213 AGE OF PATIENT: 57 ADMISSION DATE: 05/10/18 REFERRING PHYSICIAN: INTERPRETING PHYSICIAN: NEAL MIRANDA MD ECHOCARDIOGRAM REPORT ECHO CHARGES 4 ECHO COMPLETE Date: 05/12/18 CLINICAL DIAGNOSIS: EF/PULMONARY EDEMA HX CAD/STENTS ECHOCARDIOGRAPHIC MEASUREMENTS (adult normal given) AC root (d.<3.7cm) 4.0 cm LV Septum d (<1.2 cm> 1.5 cm Valve Excursion 2.7 cm LV Septum (systole) 1.7 cm Left Atria (s.<4.0cm> 3.3 cm LVPW d(<1.2cm) 1.7 cm RV (d.<2.3cm) 3.3 cm LVPW (sytole) 1.9 cm LV diastole(<5.6CM) 4.3 cm MV E-F(>70mm/sec) cm LV systole 3.2 cm LVOT Diameter 2.1 cm MV exc.(>10mm) 1.7 cm Est.ejection fraction (50-75%) % DOPPLER: LVIT cm/sec A 110 cm/sec E 60.0 cm/sec LA cm/sec RVSP 27 mmHg LVOT 98 cm/sec AOP1/2T m/s Asc. Ao 103 cm/sec RVOT 66 cm/sec RA cm/sec PA 109 cm/sec AV Gradient Peak 4.27 mmHg AV Mean 2.20 mmHg AV Area 3.1 cm MV Gradient Peak 5.69 mmHg MV Mean 1.85 mmHg MV Area cm COMMENTS: Customer Service Assistant: [employer]: 3 Dr. Oliva TAPE# PACS Pericardial Effusion N DATE OF SERVICE: 05/12/2018 Adequate 2D, color flow, spectral Doppler, and M-Mode. Borderline LVH. LV internal dimensions are normal. Wall motion is normal. EF greater than or equal to 50% to 55%. Aortic valve is tricuspid. No evidence of stenosis by Doppler interrogation. Left atrium is normal. Mitral valve shows no prolapse. Trace MR. Right-sided chambers grossly normal. Trace TR. TRANSINT:[id number] Voice Confirmation ID: [id number] DOCUMENT ID: [id number] ECHOCARDIOGRAM REPORT [id number] CINDA CHEN JR, GREGORY A MD at 1217 CC: [id number] DICTATION DATE: 05/12/18 1201 SPRING TACKER: 05/12/18 1210 ADM IN [place] [id number] [place] [address]
[2018-05-12] MEDS ORDERED: GENASYME40 MG/0.6 PO (12:56)
--- NOTE | 2018-05-12 14:35 | MORECARE ---
CASE MANAGEMENT DISCHARGE SUMMARY PATIENT: CINDA CHEN JR UNIT: [id number] ADM DATE: 05/10/18 AGE: 57 : 58 SEX: M ROOM/BED: D.2132 AUTHOR: WILBERT VICENTE PHYSICIAN: REFERRING PHYSICIAN: NATALIA CARUSO MD DATE OF SERVICE: 05/12/18 Discharge Plan Patient Name: CINDA CHEN Facility: [facility]:[place] : 1960 Planned Disposition: Home Anticipated Discharge Date: 05/12/18 Discharge Date: Expected LOS: 2 Initial Reviewer: [email or web address] Initial Review Date: 05/12/2018 Generated: 05/12/18 3:35 pm DCPIA - Discharge Planning Initial Assessment Updated by [email or web address]: Sonia Mancera on 05/12/18 2:32 pm * Is the patient Alert and Oriented? Yes * How many steps to enter\exit or inside your home? 4, RAIL * PCP DR NUNO * Pharmacy [facility] * Preadmission Environment Home with Family * ADLs Independent * Equipment Bedside Commode Walker Wheelchair * List name and contact numbers for known caregivers / representatives who currently or will assist patient after discharge: [place] CHEN, , * Verbal permission to speak to the caregivers and representatives has been obtained from the patient. Yes * Community resources currently utilized None * Additional services required to return to the preadmission environment? No * Can the patient safely return to the preadmission environment? Yes * Has this patient been hospitalized within the prior 30 days at any hospital? No Patient Name: CINDA CHEN Page [id number] at 1435 All edits/amendments must be made on the electronic document DICTATION DATE: 05/12/181433 FILES SUPERVISOR: LIZBETH 05/12/181433 RPT#: [id number] DC DATE: STATUS: ADM IN [facility] [address] [place] [address] END OF REPORT
--- NOTE | 2018-05-12 14:49 | MORECARE ---
CASE MANAGEMENT DISCHARGE SUMMARY PATIENT: CINDA CHEN JR UNIT: [id number] ADM DATE: 05/10/18 AGE: 57 : 58 SEX: M ROOM/BED: D.2132 AUTHOR: JULESDOC PHYSICIAN: REFERRING PHYSICIAN: NATALIA CARUSO MD DATE OF SERVICE: 05/12/18 Discharge Plan Patient Name: CINDA CHEN Facility: [facility]:[place] : 1960 Planned Disposition: Home Anticipated Discharge Date: 05/12/18 Discharge Date: Expected LOS: 2 Initial Reviewer: [email or web address] Initial Review Date: 05/12/2018 Generated: 05/12/18 3:49 pm Comments DCP- Discharge Planning Updated by [email or web address]: Sonia Mancera on 05/12/18 1:[address] Patient Name: CINDA CHEN Admission Status: ER Accout number: [id number] Admission Date: 05-10-2018 : 1960 Admission Diagnosis:CHEST PAIN, UNSPECIFIED Attending: NATALIA CARUSO Current LOS: 2 Anticipated DC Date: 05-12-2018 Planned Disposition: Home Primary Insurance: MEDICARE A & B Discharge Planning Comments: CM MET IN ROOM TO DISCUSS DISCHARGE PLANNING NEEDS. PATIENT LIVES AT HOME WITH HIS . HE STATED THAT HIS FRIEND WILL PICK HIM AND HIS UP AT DISCHARGE, SHE DOES NOT DRIVE. HE STATED THAT THEY HAVE A WALKER, WHEELCHAIR, AND BSC AT HOME FROM WHEN HIS HAD HER KNEE SURGERY, BUT NEITHER ONE OF THEM USE THEM. THEY ARE JUST IN A CLOSET. HE DENIES ANY COMMUNITY RESOURCES CURRENTLY IN THE HOME AND DENIES THE NEED FOR SERVICES. I LEFT MY CARD WITH MY NUMBER CIRCLED IN CASE HE OR HIS (WHEN SHE RETURNED TO THE ROOM) THINK OF ANY NEEDS THEY MAY HAVE BEFORE DISCHARGE. CM WILL CONTINUE TO FOLLOW. Lens Finisher: Sonia Mancera DCPIA - Discharge Planning Initial Assessment Updated by [email or web address]: Sonia Mancera on 05/12/18 2:32 pm * Is the patient Alert and Oriented? Yes * How many steps to enter\exit or inside your home? 4, RAIL * PCP DR NUNO * Pharmacy [facility] * Preadmission Environment Home with Family * ADLs Independent * Equipment Bedside Commode Walker Wheelchair * List name and contact numbers for known caregivers / representatives who currently or will assist patient after discharge: HAWA CHEN, , * Verbal permission to speak to the caregivers and representatives has been obtained from the patient. Yes * Community resources currently utilized None * Additional services required to return to the preadmission environment? No * Can the patient safely return to the preadmission environment? Yes * Has this patient been hospitalized within the prior 30 days at any hospital? No Last DP export: 05/12/18 1:35 p Patient Name: CINDA CHEN Page [id number] at 1449 All edits/amendments must be made on the electronic document DICTATION DATE: 05/12/181447 AIRPORT MANAGER: LIZBETH 05/12/181447 RPT#: [id number] DC DATE: STATUS: ADM IN [facility] [address] [place] [address] END OF REPORT
[2018-05-12 16:36] VITALS: BP 101/70
--- NOTE | 2018-05-12 16:47 | NUR ---
DISCHARGE INSTRUCTIONS REVIEWED WITH PT AND VERBALIZED UNDERSTANDING WITH NO QUESTIONS. SL REMOVED FROM LEFT HAND WITH TIP INTACT. LEFT FLOOR AMBULATORY AT HIS REQUEST. HAS ALL PERSONAL BELONGINGS. LEFT FACILITY VIA PRIVATE VEHICLE WHICH HE WAS DRIVING HIMSELF. 24 HOURS POST ANESTHESIA.
--- NOTE | 2018-05-12 17:36 | MORECARE ---
CASE MANAGEMENT DISCHARGE SUMMARY PATIENT: CINDA CHEN JR UNIT: [id number] ADM DATE: 05/10/18 AGE: 57 : 58 SEX: M ROOM/BED: D.2132 AUTHOR: JULESDOC PHYSICIAN: REFERRING PHYSICIAN: NATALIA CARUSO MD DATE OF SERVICE: 05/12/18 Discharge Plan Patient Name: CINDA CHEN Facility: [facility]:[place] : 1960 Planned Disposition: Home Anticipated Discharge Date: 05/12/18 Discharge Date: 05/12/2018 Expected LOS: 2 Initial Reviewer: [email or web address] Initial Review Date: 05/12/2018 Generated: 05/12/18 6:36 pm Comments DCP- Discharge Planning Updated by [email or web address]: Sonia Mancera on 05/12/18 1:[address] Patient Name: CINDA CHEN Admission Status: ER Accout number: [id number] Admission Date: 05-10-2018 : 1960 Admission Diagnosis:CHEST PAIN, UNSPECIFIED Attending: NATALIA CARUSO Current LOS: 2 Anticipated DC Date: 05-12-2018 Planned Disposition: Home Primary Insurance: MEDICARE A & B Discharge Planning Comments: CM MET IN ROOM TO DISCUSS DISCHARGE PLANNING NEEDS. PATIENT LIVES AT HOME WITH HIS . HE STATED THAT HIS FRIEND WILL PICK HIM AND HIS UP AT DISCHARGE, SHE DOES NOT DRIVE. HE STATED THAT THEY HAVE A WALKER, WHEELCHAIR, AND BSC AT HOME FROM WHEN HIS HAD HER KNEE SURGERY, BUT NEITHER ONE OF THEM USE THEM. THEY ARE JUST IN A CLOSET. HE DENIES ANY COMMUNITY RESOURCES CURRENTLY IN THE HOME AND DENIES THE NEED FOR SERVICES. I LEFT MY CARD WITH MY NUMBER CIRCLED IN CASE HE OR HIS (WHEN SHE RETURNED TO THE ROOM) THINK OF ANY NEEDS THEY MAY HAVE BEFORE DISCHARGE. CM WILL CONTINUE TO FOLLOW. Dietary Aide Cook: Sonia Mancera DCPIA - Discharge Planning Initial Assessment Updated by [email or web address]: Sonia Mancera on 05/12/18 2:32 pm * Is the patient Alert and Oriented? Yes * How many steps to enter\exit or inside your home? 4, RAIL * PCP DR NUNO * Pharmacy [facility] * Preadmission Environment Home with Family * ADLs Independent * Equipment Bedside Commode Walker Wheelchair * List name and contact numbers for known caregivers / representatives who currently or will assist patient after discharge: HAWA CHEN, , * Verbal permission to speak to the caregivers and representatives has been obtained from the patient. Yes * Community resources currently utilized None * Additional services required to return to the preadmission environment? No * Can the patient safely return to the preadmission environment? Yes * Has this patient been hospitalized within the prior 30 days at any hospital? No Last DP export: 05/12/18 1:49 p Patient Name: CINDA CHEN Page [id number] at 1736 All edits/amendments must be made on the electronic document DICTATION DATE: 05/12/181735 OPERATING ROOM AIDE: LIZBETH 05/12/181735 RPT#: [id number] DC DATE:05/12/18 STATUS: DIS IN [facility] [address] [place] [address] END OF REPORT
== END 2018-05-12 16:49 | disposition home or self-care (01) | DRG 287 ==
LOC: D.ER 14:23 → D.M2 21:04
PROVIDERS: Family Medicine; Internal Medicine Interventional Cardiology; ADMIT Internal Medicine Nephrology; ATTEND Internal Medicine Nephrology
PROC: B2151ZZ Fluoroscopy of Left Heart using Low Osmolar Contrast (ICD-10-PCS; 2018-05-11)
PROC: 4A023N7 Measurement of Cardiac Sampling and Pressure, Left Heart, Percutaneous Approach (ICD-10-PCS; 2018-05-11)
PROC: 3E073GC Introduction of Other Therapeutic Substance into Coronary Artery, Percutaneous Approach (ICD-10-PCS; 2018-05-11)
PROC: B2111ZZ Fluoroscopy of Multiple Coronary Arteries using Low Osmolar Contrast (ICD-10-PCS; principal; 2018-05-11 13:05)
DX: I11.0 Hypertensive heart disease with heart failure (principal); N17.9 Acute kidney failure, unspecified; I50.33 Acute on chronic diastolic (congestive) heart failure; I25.110 Atherosclerotic heart disease of native coronary artery with unstable angina pectoris; R51 Headache; E78.5 Hyperlipidemia, unspecified; F32.9 Major depressive disorder, single episode, unspecified; F41.9 Anxiety disorder, unspecified; G89.29 Other chronic pain; M54.9 Dorsalgia, unspecified; M25.512 Pain in left shoulder; T46.6X5A Adverse effect of antihyperlipidemic and antiarteriosclerotic drugs, initial encounter; I07.1 Rheumatic tricuspid insufficiency

== ENCOUNTER 2018-06-27 15:51 | Emergency (ER) | payer MEDICARE ==
[~2018-06-27] VITALS: Ht 167.6 cm; Wt 75.0 kg
[~2018-06-27 15:51] MED LIST changes: +GENASYME40 MG/0.6 PO
[2018-06-27 15:58] VITALS: Ht 167.6 cm; Wt 75.0 kg
[2018-06-27 16:33] LABS: BASOPHILS 0.4 % (0-2); HEMATOCRIT 42.6 % (42.0-54.0); HEMOGLOBIN 15.4 g/dL (13.5-17.5); IMMATURE GRANULOCYTES 0.1 % (0-5); LYMPHOCYTES 23.5 % (15-50); MCH 29.6 pg (26.0-34.0); MCHC 36.2 g/dL (31.0-37.0); MCV 81.8 fL (80.0-100.0); MEAN PLATELET VOLUME 9.5 fL (7.4-10.4); MONOCYTES 9.3 % (2-11); NEUTROPHILS 64.7 % (40-80); PLATELET COUNT 135 10x3/uL (130-400); RBC 5.21 10x6/uL (4.20-6.10); RDW 13.6 % (11.5-14.5); WBC 7.6 10x3/uL (4.8-10.8)
[2018-06-27 16:40] LABS: APTT 29.5 SECONDS (22.8-39.4)
[2018-06-27 16:41] LABS: INR 1.09 (0.85-1.17); PROTIME 13.6 SECONDS (11.6-15.0)
[2018-06-27 17:06] LABS: ALBUMIN 4.5 g/dL (3.4-5.0); ALKALINE PHOSPHATASE 74 U/L (46-116); ALT (SGPT) 19 U/L (10-68); BILIRUBIN - TOTAL 1.24 mg/dL (0.2-1.3); CALC OSMOLALITY 286 mosm/kg (275-300); CALCIUM 8.5 mg/dL (8.5-10.1); CARBON DIOXIDE 22.1 mmol/L (21.0-32.0); CHLORIDE - SERUM 104 mmol/L (98-107); CREATININE - SERUM 1.6 mg/dL (0.6-1.3); GLUCOSE 90 mg/dL (74-106); POTASSIUM - SERUM 4.1 mmol/L (3.5-5.1); PROTEIN - SERUM 7.2 g/dL (6.4-8.2); SODIUM 139 mmol/L (136-145); UREA NITROGEN 38 mg/dL (7-18); eGFR NON AFRICAN AMERICAN 47 mL/min (90-120)
[2018-06-27 17:18] LABS: CKMB 5.6 U/L (0.0-3.6); CREATINE KINASE 210 UL (21-232); MAGNESIUM - SERUM 2.2 mg/dL (1.8-2.4)
[2018-06-27 17:23] LABS: TROPONIN-I < 0.017 ng/mL (0.000-0.060)
[2018-06-27 18:30] VITALS: BP 112/73
== END 2018-06-27 19:05 | disposition home or self-care (01) ==
LOC: D.ER 15:51
PROVIDERS: Family Medicine
DX: R07.89 Other chest pain (principal); I12.9 Hypertensive chronic kidney disease with stage 1 through stage 4 chronic kidney disease, or unspecified chronic kidney disease; N18.9 Chronic kidney disease, unspecified; I25.10 Atherosclerotic heart disease of native coronary artery without angina pectoris